=== PATIENT | female | born 1945 | race Caucasian/White ===

== ENCOUNTER 2020-10-15 10:27 | Outpatient (REF) | payer MEDICARE, MEDICAID, SELFPAY ==
[2020-10-15 11:30] LABS: MANUAL DIFF FLAG NO
[2020-10-15 11:47] LABS: Basophils Percent Auto 0.6 % (0-2); Eosinophils Absolute Auto 0.1 X10*3/uL (0.0-0.4); Eosinophils Percent Auto 2.2 % (0-4); Hematocrit 44.3 % (37-47); Hemoglobin 14.2 g/dl (12.0-16.0); Imm Gran Abs Auto 0.02 X10*3/uL (0.00-0.03); Imm Gran Pct Auto 0.4 % (0.0-0.4); Lymphocytes Absolute Auto 1.8 X10*3/uL (1.2-4.9); Lymphocytes Percent Auto 35.8 % (20-40); Mean Corpuscular HGB Conc 32.1 g/dl (31.0-35.0); Mean Corpuscular Hemoglobin 31.6 pg (27.0-33.0); Mean Corpuscular Volume 98.7 fL (80-98); Mean Platelet Volume 10.5 fL (9.4-12.3); Monocytes Absolute Auto 0.5 X10*3/uL (0.1-1.2); Neutrophils Absolute Auto 2.6 X10*3/uL (2.0-8.3); Platelet Count 192 X10*3/uL (160-400); Red Blood Count 4.49 X10*6/uL (4.20-5.50); Red Cell Distribution Width 12.9 % (11.0-16.0); White Blood Count 5.1 X10*3/uL (4.8-10.8)
[2020-10-15 11:54] LABS: Alanine Aminotransferase 12 U/L (0-31); Albumin Level 4.6 g/dL (3.5-5.0); Alkaline Phosphatase 100 U/L (39-117); Anion Gap 13 (12-20); Aspartate Amino Transferase 20 U/L (5-31); Bilirubin Total 0.7 mg/dL (0.0-1.0); Blood Urea Nitrogen 12 mg/dL (9-16); Calcium 9.9 mg/dL (8.4-10.2); Carbon Dioxide 28 mmol/L (22-29); Chloride 106 mmol/L (96-108); Estimated Glomerular Filt Rate > 60; Glucose Random 114 mg/dL (60-115); Potassium 4.5 mmol/L (3.3-5.1); Sodium 142 mmol/L (135-145)
== END 2020-10-15 10:28 | disposition home or self-care (01) ==
LOC: HO.LAB 10:27
PROVIDERS: PCP Family Medicine; Visit Provider Family Medicine
DX: R53.83 Other fatigue (principal)
CPT/HCPCS: 36415; 80053; 85025

== ENCOUNTER 2022-02-23 13:26 | Outpatient (REF) | payer MEDICARE, MEDICAID, SELFPAY ==
[2022-02-23 14:50] LABS: Appearance Urine Cloudy; Color Urine Yellow; Glucose Urine UA Negative (Negative); Leukocyte Esterase Urine Large (3+) (Negative); Nitrite Urine Negative (Negative); PH 5.5 (5.0-9.0); Specific Gravity - Urine <= 1.005 (1.005-1.025); UMIC TRIGGER UACC YES; Urine Blood Large (3+) (Negative); Urine Ketones Negative (Negative); Urine Protein 30 (1+) mg/dL (Neg-Trace)
[2022-02-23 14:55] LABS: Bacteria Urine None Seen (None Seen); Hyaline Casts Urine 0-2 /LPF (0-2); RBC Urine >20 /HPF (0-2); Squamous Epithelial Cell Urine 0-2 /HPF (0-2); UACC Culture Trigger YES; WBC Urine >50 /HPF (0-5)
== END 2022-02-23 13:27 | disposition home or self-care (01) ==
LOC: HO.LAB 13:26
PROVIDERS: PCP Family Medicine; Visit Provider Family Medicine
DX: R30.0 Dysuria (principal); F03.90 Unspecified dementia, unspecified severity, without behavioral disturbance, psychotic disturbance, mood disturbance, and anxiety
CPT/HCPCS: 81001; 87086; 87088; 87186

== ENCOUNTER 2023-06-02 10:13 | Outpatient (REF) | payer MEDICARE, MEDICAID, SELFPAY ==
[2023-06-02 11:27] LABS: Appearance Urine Clear; Color Urine Yellow; Glucose Urine UA Negative (Negative); Leukocyte Esterase Urine Large (3+) (Negative); Nitrite Urine Negative (Negative); PH 6.5 (5.0-9.0); Specific Gravity - Urine <= 1.005 (1.005-1.025); UMIC TRIGGER UACC YES; Urine Blood Moderate (2+) (Negative); Urine Ketones Negative (Negative); Urine Protein Negative (Neg-Trace)
[2023-06-02 11:51] LABS: Bacteria Urine None Seen (None Seen); Hyaline Casts Urine 0-2 /LPF (0-2); RBC Urine 0-2 /HPF (0-2); Squamous Epithelial Cell Urine 0-2 /HPF (0-2); UACC Culture Trigger YES; WBC Urine 21-50 /HPF (0-5)
== END 2023-06-02 10:14 | disposition home or self-care (01) ==
LOC: HO.LAB 10:13
PROVIDERS: PCP Family Medicine; Visit Provider Family Medicine
DX: Z13.89 Encounter for screening for other disorder (principal)
CPT/HCPCS: 81001; 87086

== ENCOUNTER 2023-06-05 06:06 | Inpatient (IN) | payer MEDICARE, MEDICAID, SELFPAY ==
--- NOTE | 2023-06-05 | ECG_ITS ---
Test Reason : FALL Blood Pressure : / mmHG Vent. Rate : 096 BPM Atrial Rate : 096 BPM P-R Int : 180 ms QRS Dur : 076 ms QT Int : 352 ms P-R-T Axes : 035 008 029 degrees QTc Int : 444 ms Normal sinus rhythm Inferior infarct , age undetermined Cannot rule out Anterior infarct , age undetermined Abnormal ECG No previous ECGs available Referred By: Generic ED Physician Electronically Signed By:NATALIA HARTMAN MD
--- NOTE | ~2023-06-05 | CT_ITS ---
EXAMINATION: CT HIP WITHOUT CONTRAST, LEFT CLINICAL INFORMATION: Left hip pain COMPARISON: None available. TECHNIQUE: Multidetector volumetric imaging was obtained through the left hip without contrast material. Multiplanar reformatted images were submitted in coronal and sagittal planes. This CT examination was performed using dose optimization techniques as appropriate, variously including the following: *Automated exposure control *Adjustment of mA and/or kV according to patient size (this includes techniques or standardized protocols for targeted exams where dose is matched to indication/reason for exam; i.e. extremities or head) *Use of iterative reconstruction technique DLP: 195 mGy-cm FINDINGS: Bones: CT scan confirm nondisplaced oblique fracture through the proximal diaphysis of the left femur which extends from the lesser trochanter into the lateral surface of the femoral diaphysis. No other fractures. Femoral head and neck are intact. Adjacent acetabulum, pubic rami, iliac bone and included sacrum are intact. Joints: Mild degenerative osteoarthritic changes of the left hip. Surrounding soft tissue: Included portion of the pelvis included part of the rectum bladder are normal. Subcutaneous fat and musculature are grossly unremarkable. No lymphadenopathy. CT/CT hip LT wo IV con IMPRESSION: * CT scan confirms nondisplaced oblique nondisplaced fracture through the proximal diaphysis of the left femur which extends from the lesser trochanter into the lateral surface of the femoral diaphysis. * No other fractures. * Mild degenerative osteoarthritic changes of the left hip.
--- NOTE | ~2023-06-05 | FL_ITS ---
EXAMINATION: XR FLUOROSCOPY WITH IMAGES CLINICAL INFORMATION: Left IM nailing. COMPARISON: June 05, 2023 TECHNIQUE: Fluoroscopy Supervised By: Dr. Roth. Fluoroscopy Time: 0.6 minutes. Cumulative Dose: 14.6 mGy. Images: 4. FINDINGS: Images demonstrate placement of compression screw with intramedullary candice transfixing a proximal left femoral fracture. FL/FL guidance in OR IMPRESSION: Intraoperative fluoroscopy for orthopedic procedure.
--- NOTE | ~2023-06-05 | XR_ITS ---
EXAMINATION: XR FEMUR, LEFT CLINICAL INFORMATION: Fall COMPARISON: None available. TECHNIQUE: AP and lateral views of the left femur were obtained. FINDINGS: There is an oblique radiolucent line through the proximal left femur diaphysis seen on one view only concerning for nondisplaced hairline fracture. Femoral head properly positioned. Femoral neck is intact. There are degenerative osteoarthritic changes of the knee. XR/XR femur LT 2V IMPRESSION: Suspicion for possible nondisplaced hairline fracture through the proximal left femur. Please correlate with area of tenderness, Padilla image. May consider correlation with follow-up cross-sectional imaging CT scan.
--- NOTE | ~2023-06-05 | CT_ITS ---
EXAMINATION: CT CERVICAL SPINE WITHOUT CONTRAST; UNENHANCED CT OF THE HEAD. CLINICAL INFORMATION: Fall. COMPARISON: None TECHNIQUE: Routine unenhanced CT of the head with multiple coronal and sagittal reformatted images; routine unenhanced CT of the cervical spine with multiple coronal and sagittal reformatted images. This CT examination was performed using dose optimization techniques as appropriate, variously including the following: *Automated exposure control *Adjustment of mA and/or kV according to patient size (this includes techniques or standardized protocols for targeted exams where dose is matched to indication/reason for exam; i.e. extremities or head) *Use of iterative reconstruction technique DLP: 213 mGy-cm FINDINGS: CT head: Moderate diffuse commensurate prominence of ventricles and sulci is noted. No intracranial hemorrhage, tumors or acute infarcts visualized. Mild segmental calcific atherosclerotic plaques are present in the cavernous portions of the internal carotid arteries. Bilateral senescent ocular calcifications are noted. Lobulated density is present in the left maxillary sinus and may represent mucosal retention cyst measuring approximately 2 cm in diameter. No mastoid or middle ear cavity effusions identified. Mild hyperostosis frontalis interna. CT cervical spine: Partial visualization is made of convex leftward curvature of the thoracic spine. No fractures or acute appearing subluxations of the cervical spine noted. Marked diffuse osteopenia. Moderate intervertebral disc space narrowing C4-C5, C5-C6 and C6-C7. 2 mm chronic appearing degenerative retrolisthesis C4-C5. No prevertebral fluid collections or soft tissue inflammatory changes. Mild bilateral carotid bulb calcific atherosclerosis. CT/CT cervical spine wo IV con IMPRESSION: CT HEAD: No acute intracranial abnormalities. CT CERVICAL SPINE: 1. No acute abnormalities. 2. Multilevel chronic spondylosis.
[2023-06-05 06:18] VITALS: BP 148/63; BP 164/72; PULSE 85; PULSE 87; RESP 16; O2SAT 96; O2SAT 99; BMI 27.3
--- NOTE | 2023-06-05 06:29 | ED_ITS ---
HPI - Fall General Chief Complaint: Fall Stated Complaint: Fall/Left leg and hip pain Time Seen by Provider: 06/05/23 06:29 Source: patient and RN notes reviewed Mode of arrival: ambulatory Limitations: no limitations History of Present Illness HPI Narrative: This is a 77-year-old female presenting to the emergency department for evaluation of left hip pain since 11:00PM last night. Patient states that while she was unplugging her [place] tree, she turned and believes her left foot got caught on the carpet and she fell, striking her left side and left hip. She states that she immediately had left-sided hip pain and left leg pain. She states that after the fall she was able to walk to her recliner however she has been unable to weight bear on her left leg since the fall. Denies hitting her head or loss of consciousness. She denies feeling dizzy, lightheaded, having any chest pain or shortness of breath prior to the fall. She denies any headaches, dizziness, chest pain, shortness breast, abdominal pain, nausea, vomiting or diarrhea. of note, patient reports that she wishes started on antibiotic to treat a urinary tract infection. She has not taken her dose today. No other complaints or concerns at this time. MD complaint: fall Onset (ago): hour(s) Fall from: standing Fall witnessed: no Place fall occurred: home Loss of consciousness: none Prolonged down time: minute(s) (5) Symptoms prior to fall: none Severity: moderate Quality: sharp and aching Associated symptoms (after fall): denies Related Data Allergies Allergy/AdvReac Type Severity Reaction Status Date / Time No Known Allergies Allergy Unverified 02/27/20 17:46 Review of Systems 2 Review of Systems: Yes all other systems are reviewed and are negative Constitutional: Constitutional: Reports as per [facility] [place] Social History Social History Unable to assess alcohol history related to: Unknown Smoked in Last 30 Days: No Use of substances other than those prescribed or required for medical reasons: No Advance Directives: No Advance Directives Information Provided: No Physical Exam 2 Vital Signs: Vital Signs: Last Vital Signs Pulse 85 06/05/23 06:18 Resp 16 06/05/23 06:18 BP 148/63 H 06/05/23 06:18 Pulse Ox 96 06/05/23 06:18 O2 Del Method Room Air 06/05/23 06:18 BMI result Body Mass Index 27.3 Const: General: cooperative, comfortable and no acute distress O rientation/consciousness: patient oriented x3 Limitations: no limitations HEENT: Head: Yes normal to inspection, Yes normocephalic and Yes atraumatic Ears: hearing grossly normal bilaterally General nose exam: Normal external nose present Face and sinus: Yes normal facial exam Mouth: Normal oral and palatal mucosa present, oropharynx normal and moist mucous membranes Throat: Yes posterior oropharynx normal Eyes: General: appearance normal, both eyes and all related structures E yelids: Yes eyelids normal Conjunctivae: conjunctivae normal Sclerae: s clerae normal Pupils: Equal, round and reactive pupils present EOM: EOMs intact bilaterally Neck: Neck: Yes normal visual inspection, Yes full ROM and Yes no lymphadenopathy Lymphatic: no lymphadenopathy noted Chest: Chest palpation & inspection: normal inspection of the chest Resp: Effort & Inspection: normal respiratory effort and able to speak in complete sentences Auscultation: clear to auscultation bilaterally, no crackles, no rales, no rhonchi and no wheezes Cardio: Rate: regular rate Rhythm: regular rhythm Heart sounds: S1 normal heart sound present and S2 normal heart sound present GI: Other: Abdomen is soft, nontender, nondistended. No active process seen. Inspection: Yes normal to inspection Skin: General skin exam: no rashes or lesions noted Trauma: no lacerations or abrasions Wounds: no wounds Neuro: General: patient oriented x3 and moves all extremities Cranial nerves: Yes Equal, round and reactive pupils present Extrem: Other: Tenderness to palpation along the anterior left femur with no ecchymosis or hematoma and posterior left hip. pain worsens with range of motion able to flex at the hip and left knee. Distal sensation circulation intact. No calf tenderness. No edema noted. DP pulse 2 + General: Yes normal to inspection Right upper extremity: normal to inspection Left upper extremity: normal to inspection Right lower extremity: normal to inspection Left lower extremity: normal to inspection Course Reevaluation(s) Reevaluation #1: CT cervical spine returns, no acute fracture seen. CT brain shows no acute intracranial process. Cervical collar removed. Reevaluation #2: Labs reviewed, no leukocytosis, stable H&H, electrolytes within normal limits, CPK mildly elevated at 185. Troponin 3.6, does not require repeat as patient has no chest pain and fall was mechanical. CT of the hip revealing a a nondisplaced oblique fracture through the proximal diaphysis of the left femur which extends to the lesser trochanter into the lateral surface of the femoral diaphysis. I spoke to Dr. Owens who recommends hospital admission and will perform surgery tomorrow. Time: 09:28 Reevaluation #3: Spoke to patient who is agreeable for Hospital admission and surgery. Spoke to hospitalist, transfer care initiated Time: 10:16 Medications Administered Discontinued Medications Generic Name Dose Route Start Last Admin Trade Name Marlene PRN Reason Stop Dose Admin Acetaminophen 650 mg 06/05/23 06:46 06/05/23 08:44 Acetaminophen 325 Mg Tablet PO 06/05/23 06:47 650 mg ONCE ONE Administration Medical Decision Making Medical Decision Making [facility] Narrative: This is a 77-year-old female, with no known past medical history, presenting to the emergency department complaints of left-sided hip and left leg pain status post mechanical fall which occurred last night at 11 p.m. she denies head strike or loss of consciousness. She was on the ground for approximately 5 minutes. She has been unable to bear weight on her left leg secondary to pain. On arrival, vital signs within normal limits. Patient has tenderness palpation along the left hip and left femur. Patient arrives in cervical collar. She is not complaining of any headaches or dizziness. She is not on anticoagulants. differential diagnoses include from oral fracture, hip fracture, dislocation. Plan: will obtain left hip CT, left femur x-ray, basic labs, EKG Differential Diagnosis Differential Diagnoses: The differential diagnosis associated with the presentation includes fracture, contusion, dislocation, ICH Admission/Observation Consideration of admission/observation: Escalation of care including admission/observation considered Patient requiring hospitalization as well as orthopedic surgical intervention. Consult Healthcare Provider Management of the patient was discussed with: Hospitalist and Energy Efficiency Specialist Dr. Owens, orthopedist Dr. Lennon, hospitalist Lab Data [facility] Lab Attestation statement: I reviewed the patient's lab results. no leukocytosis, electrolytes within normal limits. CPK 185, troponin 3.6. 06/05/23 06:56 06/05/23 06:56 Labs: Lab Results 06/05/23 Range/Units 06:56 WBC 9.2 (4.8-10.8) X10*3/uL RBC 4.15 L (4.20-5.50) X10*6/uL Hgb 13.1 (12.0-16.0) g/dl Hct 39.0 (37.0-47.0) % MCV 94.0 (80.0-98.0) fL MCH 31.6 (27.0-33.0) pg MCHC 33.6 (31.0-35.0) g/dl RDW 13.5 (11.0-16.0) % Plt Count 195 (160-400) X10*3/uL MPV 9.2 L (9.4-12.3) fL Immature Gran % (Auto) 0.4 (0.0-0.4) % Neut % (Auto) 78.9 H (45-73) % Lymph % (Auto) 9.9 L (20-40) % Wheeler % (Auto) 10.4 (2-11) % Eos % (Auto) 0.1 (0-4) % Baso % (Auto) 0.3 (0-2) % Lymph # (Auto) 0.9 L (1.2-4.9) X10*3/uL Wheeler # (Auto) 1.0 (0.1-1.2) X10*3/uL Eos # (Auto) 0.0 (0.0-0.4) X10*3/uL Baso # (Auto) 0.0 (0.0-0.2) X10*3/uL Abs Immat Gran (auto) 0.04 H (0.00-0.03) X10*3/uL Absolute Neuts (auto) 7.3 (2.0-8.3) x10*3/uL Absolute Nucleated RBC 0.000 (0.0-0.012) X10*3/uL Nucleated RBC % (auto) 0.0 (0.0-0.2) /100WBC Sodium 143 (135-145) mmol/L Potassium 4.2 (3.3-5.1) mmol/L Chloride 109 H (96-108) mmol/L Carbon Dioxide 22 (22-29) mmol/L Anion Gap 16 (12-20) BUN 15 (9-16) mg/dL Creatinine 0.83 (0.5-1.4) mg/dL Estim Creat Clear Calc 46.4 Estimated GFR > 60 Random Glucose 107 (60-115) mg/dL Calcium 9.7 (8.4-10.2) mg/dL Total Bilirubin 0.5 (0.0-1.0) mg/dL Direct Bilirubin 0.2 (0.0-0.5) mg/dL AST 28 (5-31) U/L ALT 15 (0-31) U/L Alkaline Phosphatase 87 (39-117) U/L Total Creatine Kinase 185 H (26-140) U/L Troponin I High Sens 3.6 (<3.5-17.0) ng/L Total Protein 7.1 (6.5-8.0) g/dL Albumin 4.3 (3.5-5.0) g/dL Independent Interpretation I performed an independent interpretation of an: EKG Interpretation: EKG normal sinus rhythm at a ventricular rate of 96 beats per minute, NE interval 180, no ST elevation or depression. Radiology Impression Discussion of test interpretation with radiology: I have reviewed the radiologist's reading. Radiologist Impression: EXAMINATION: CT HIP WITHOUT CONTRAST, LEFT CLINICAL INFORMATION: Left hip pain COMPARISON: None available. TECHNIQUE: Multidetector volumetric imaging was obtained through the left hip without contrast material. Multiplanar reformatted images were submitted in coronal and sagittal planes. This CT examination was performed using dose optimization techniques as appropriate, variously including the following: *Automated exposure control *Adjustment of mA and/or kV according to patient size (this includes techniques or standardized protocols for targeted exams where dose is matched to indication/reason for exam; i.e. extremities or head) *Use of iterative reconstruction technique DLP: 195 mGy-cm FINDINGS: Bones: CT scan confirm nondisplaced oblique fracture through the proximal diaphysis of the left femur which extends from the lesser trochanter into the lateral surface of the femoral diaphysis. No other fractures. Femoral head and neck are intact. Adjacent acetabulum, pubic rami, iliac bone and included sacrum are intact. Joints: Mild degenerative osteoarthritic changes of the left hip. Surrounding soft tissue: Included portion of the pelvis included part of the rectum bladder are normal. Subcutaneous fat and musculature are grossly unremarkable. No lymphadenopathy. CT/CT hip LT wo IV con IMPRESSION: * CT scan confirms nondisplaced oblique nondisplaced fracture through the proximal diaphysis of the left femur which extends from the lesser trochanter into the lateral surface of the femoral diaphysis. * No other fractures. * Mild degenerative osteoarthritic changes of the left hip. Dictated By: Antionette Jarrett MD EXAMINATION: CT CERVICAL SPINE WITHOUT CONTRAST; UNENHANCED CT OF THE HEAD. CLINICAL INFORMATION: Fall. COMPARISON: None TECHNIQUE: Routine unenhanced CT of the head with multiple coronal and sagittal reformatted images; routine unenhanced CT of the cervical spine with multiple coronal and sagittal reformatted images. This CT examination was performed using dose optimization techniques as appropriate, variously including the following: *Automated exposure control *Adjustment of mA and/or kV according to patient size (this includes techniques or standardized protocols for targeted exams where dose is matched to indication/reason for exam; i.e. extremities or head) *Use of iterative reconstruction technique DLP: 213 mGy-cm FINDINGS: CT head: Moderate diffuse commensurate prominence of ventricles and sulci is noted. No intracranial hemorrhage, tumors or acute infarcts visualized. Mild segmental calcific atherosclerotic plaques are present in the cavernous portions of the internal carotid arteries. Bilateral senescent ocular calcifications are noted. Lobulated density is present in the left maxillary sinus and may represent mucosal retention cyst measuring approximately 2 cm in diameter. No mastoid or middle ear cavity effusions identified. Mild hyperostosis frontalis interna. CT cervical spine: Partial visualization is made of convex leftward curvature of the thoracic spine. No fractures or acute appearing subluxations of the cervical spine noted. Marked diffuse osteopenia. Moderate intervertebral disc space narrowing C4-C5, C5-C6 and C6-C7. 2 mm chronic appearing degenerative retrolisthesis C4-C5. No prevertebral fluid collections or soft tissue inflammatory changes. Mild bilateral carotid bulb calcific atherosclerosis. CT/CT head/brain wo IV con IMPRESSION: CT HEAD: No acute intracranial abnormalities. CT CERVICAL SPINE: 1. No acute abnormalities. 2. Multilevel chronic spondylosis. Dictated By: Chriss Kumar MD Signed By: <Electronically signed by Chriss Kumar MD in OV> EXAMINATION: XR FEMUR, LEFT CLINICAL INFORMATION: Fall COMPARISON: None available. TECHNIQUE: AP and lateral views of the left femur were obtained. FINDINGS: There is an oblique radiolucent line through the proximal left femur diaphysis seen on one view only concerning for nondisplaced hairline fracture. Femoral head properly positioned. Femoral neck is intact. There are degenerative osteoarthritic changes of the knee. XR/XR femur LT 2V IMPRESSION: Suspicion for possible nondisplaced hairline fracture through the proximal left femur. Please correlate with area of tenderness, Padilla image. May consider correlation with follow-up cross-sectional imaging CT scan. Dictated By: Antionette Jarrett MD Independent Historian Clinical information obtained from an independent historian. History obtained from or confirmed by: Friend FriendAnnabel at bedside Prescription Management I considered prescription management with: Pain Medication Critical Care Time Critical Care Time Critical Care Time: Yes Total Critical Care Time: 35 Attestation: I have personally provided critical care time exclusive of time spent on separately billable procedures. Time includes review of lab data, radiology results, discussion with consultants, and monitoring for potential decompensation. Intervention performed as documented. Discharge Plan Discharge Clinical Impression: Femur fracture, left Patient Disposition: Admitted As Inpatient
[2023-06-05 07:09] LABS: Basophils Percent Auto 0.3 % (0-2); Eosinophils Percent Auto 0.1 % (0-4); Hemoglobin 13.1 g/dl (12.0-16.0); Imm Gran Abs Auto 0.04 X10*3/uL (0.00-0.03); Imm Gran Pct Auto 0.4 % (0.0-0.4); Lymphocytes Absolute Auto 0.9 X10*3/uL (1.2-4.9); Lymphocytes Percent Auto 9.9 % (20-40); MANUAL DIFF FLAG NO; Mean Corpuscular HGB Conc 33.6 g/dl (31.0-35.0); Mean Corpuscular Hemoglobin 31.6 pg (27.0-33.0); Mean Platelet Volume 9.2 fL (9.4-12.3); Monocytes Percent Auto 10.4 % (2-11); Neutrophils Absolute Auto 7.3 x10*3/uL (2.0-8.3); Neutrophils Percent Auto 78.9 % (45-73); Platelet Count 195 X10*3/uL (160-400); Red Blood Count 4.15 X10*6/uL (4.20-5.50); Red Cell Distribution Width 13.5 % (11.0-16.0); White Blood Count 9.2 X10*3/uL (4.8-10.8)
--- NOTE | 2023-06-05 07:11 | PC.NURSE ---
resumed care of patient, labs being drawn, awaiting CT at this time, C-collar in place. All safety measures in place at this time.
[2023-06-05 07:43] LABS: Alanine Aminotransferase 15 U/L (0-31); Albumin Level 4.3 g/dL (3.5-5.0); Alkaline Phosphatase 87 U/L (39-117); Anion Gap 16 (12-20); Aspartate Amino Transferase 28 U/L (5-31); Bilirubin Direct 0.2 mg/dL (0.0-0.5); Bilirubin Total 0.5 mg/dL (0.0-1.0); Blood Urea Nitrogen 15 mg/dL (9-16); Calcium 9.7 mg/dL (8.4-10.2); Carbon Dioxide 22 mmol/L (22-29); Chloride 109 mmol/L (96-108); Creatinine Clr Calc Pharmacy 46.4; Estimated Glomerular Filt Rate > 60; Glucose Random 107 mg/dL (60-115); Potassium 4.2 mmol/L (3.3-5.1); Sodium 143 mmol/L (135-145); Total Protein 7.1 g/dL (6.5-8.0)
[2023-06-05 07:50] LABS: Troponin-I High Sensitivity 3.6 ng/L (<3.5-17.0)
[2023-06-05] MEDS: Acetaminophen 325 MG TABLET 650 MG PO ×2 (08:44→15:06)
--- NOTE | 2023-06-05 11:44 | P.HPHOSP_ITS ---
History of Present Illness Date of Service: 06/05/23 Chief Complaint: fall/left hip pain 77-year-old female diagnosed to have COVID 2 weeks ago, and 3 days ago diagnosed to have urinary tract infection on Bactrim day 3, otherwise she denies any significant past medical history of diabetes, no hypertension, no coronary artery disease, presenting to the emergency department for evaluation of left hip pain since 11:00PM last night. Patient states that while she was unplugging her [place] tree, she turned and believes her left foot got caught on the carpet and she fell, striking her left side and left hip. She states that she immediately had left-sided hip pain with radiation to left leg, after the fall she was able to walk to her recliner but was unable to weightbear on left leg, therefore came to emergency room, she denies head injury, no loss of consciousness no symptoms of lightheadedness dizziness, chest pain or shortness of breath prior to fall , she denies symptoms of nausea, vomiting or diarrhea, her urinary symptoms of frequency and dysuria have resolved. Review of Systems 2 Review of Systems: General no headache, no dizziness ,no fever chills. CVS no chest pain, no palpitation. Respiratory no cough, no sob. Gastrointestinal no nausea, no vomiting, no abdominal pain no urinary urgency, no frequency Musculoskeletal left hip pain with movement PMFSH Pertinent family history: Mother diseased diet few to old age, father at age 72 due to [place], denies family history of diabetes, cancer Social History Unable to assess alcohol history related to: Unknown Smoked in Last 30 Days: No Use of substances other than those prescribed or required for medical reasons: No Advance Directives: No Advance Directives Information Provided: No Meds Allergies Allergy/AdvReac Type Severity Reaction Status Date / Time No Known Allergies Allergy Unverified 02/27/20 17:46 Active Medications: Current Medications Acetaminophen (Acetaminophen 325 Mg Tablet) 650 mg PO Q6H PRN PRN Reason: Pain, Mild (Pain Scale 1-3) Al Hydroxide/Mg Hydroxide (Magnesium Hydrox/Alum Hydrox 30 Ml Oral.Susp) 30 ml PO Q4H PRN PRN Reason: Heartburn/Nausea Benzonatate (Benzonatate 100 Mg Capsule) 100 mg PO TID PRN PRN Reason: Cough Enoxaparin Sodium (Enoxaparin Sodium 40 Mg/0.4 Ml Syringe) 40 mg SUBCUT Q24H [facility] Ceftriaxone Sodium 1 gm/ (Sodium Chloride) 50 mls @ 100 mls/hr IV Q24H [facility] Melatonin (Melatonin 3 Mg Tablet) 3 mg PO BEDTIME PRN PRN Reason: Insomnia Morphine Sulfate (Morphine Sulfate 4 Mg/Ml Cartridge) 3 mg IVPUSH Q4H PRN; Protocol PRN Reason: Pain, Severe (Pain Scale 7-10) Ondansetron HCl (Ondansetron Hcl 4 Mg/2 Ml Vial) 4 mg IVPUSH Q8H PRN PRN Reason: Nausea and Vomiting Sodium Chloride (0.9 % Sodium Chloride Flush 3 Ml Syringe) 3 ml IVFLUSH QSHIFT [facility] Home Medications Medication Instructions Recorded Confirmed Last Taken Type ZICAM 1 tab PO Q4H 06/05/23 06/05/23 Unknown History acetaminophen 325 mg tablet 650 mg PO Q6H PRN Pain 06/05/23 06/05/23 Unknown History ascorbic acid (vitamin C) 1,000 mg 1 g PO TID 06/05/23 06/05/23 Unknown History tablet (Vitamin C) lactobacillus combination no.4 3 3,000 mmu cells PO DAILY 06/05/23 06/05/23 Unknown History billion cell capsule (Probiotic) sulfamethoxazole 800 1 tab PO BID 06/05/23 06/05/23 Unknown History mg-trimethoprim 160 mg tablet Physical Exam 2 Vital Signs and Narrative: Vital Signs: Last Vital Signs Pulse 85 06/05/23 06:18 Resp 16 06/05/23 06:18 BP 148/63 H 06/05/23 06:18 Pulse Ox 96 06/05/23 06:18 O2 Del Method Room Air 06/05/23 06:18 BMI result Body Mass Index 27.3 Const: Other: General awake alert x3, resting comfortably in no acute distress. Neck supple no JVD. CVS regular rate rhythm, Respiratory lungs clear to auscultation, no respiratory distress, no wheeze, no rhonchi. Gastrointestinal abdomen soft, nontender, bowel sounds audible, no guarding , no rigidity. Extremities no edema. Left hip no hematoma, no bruise, pain with left hip movement, good peripheral pulses Neuro nonfocal Skin no rash Psych appropriate affect Results Labs 06/05/23 06:56 06/05/23 06:56 Labs: Laboratory Results - last 24 hr 06/05/23 06:56 MCV 94.0 MCH 31.6 MCHC 33.6 RDW 13.5 Plt Count 195 MPV 9.2 L Immature Gran % (Auto) 0.4 Neut % (Auto) 78.9 H Lymph % (Auto) 9.9 L Wilson % (Auto) 10.4 Eos % (Auto) 0.1 Baso % (Auto) 0.3 Lymph # (Auto) 0.9 L Wilson # (Auto) 1.0 Eos # (Auto) 0.0 Baso # (Auto) 0.0 Abs Immat Gran (auto) 0.04 H Absolute Neuts (auto) 7.3 Absolute Nucleated RBC 0.000 Nucleated RBC % (auto) 0.0 Anion Gap 16 Estim Creat Clear Calc 46.4 Estimated GFR > 60 Random Glucose 107 Calcium 9.7 Total Bilirubin 0.5 Direct Bilirubin 0.2 AST 28 ALT 15 Alkaline Phosphatase 87 Total Creatine Kinase 185 H Total Protein 7.1 Albumin 4.3 Imaging Radiologist's Impressions: Impressions Femur X-Ray 06/05/23 07:49 IMPRESSION: Suspicion for possible nondisplaced hairline fracture through the proximal left femur. Please correlate with area of tenderness, Padilla image. May consider correlation with follow-up cross-sectional imaging CT scan. Cervical Spine CT 06/05/23 08:12 IMPRESSION: CT HEAD: No acute intracranial abnormalities. CT CERVICAL SPINE: 1. No acute abnormalities. 2. Multilevel chronic spondylosis. Head CT 06/05/23 08:12 IMPRESSION: CT HEAD: No acute intracranial abnormalities. CT CERVICAL SPINE: 1. No acute abnormalities. 2. Multilevel chronic spondylosis. Hip CT 06/05/23 08:12 IMPRESSION: * CT scan confirms nondisplaced oblique nondisplaced fracture through the proximal diaphysis of the left femur which extends from the lesser trochanter into the lateral surface of the femoral diaphysis. * No other fractures. * Mild degenerative osteoarthritic changes of the left hip. Assessment and Plan (1) Femur fracture, left: Status: Acute Plan 77-year-old female with no significant past medical history recently diagnosed to have COVID infection 2 weeks ago was recuperating at home taking high-dose vitamin-C and zinc, 3 days ago diagnosed to have UTI and was started on Bactrim, patient fell last night with left hip pain therefore came to ED ct left hip showed nondisplaced oblique fracture through the proximal diaphysis of the left femur which extends from the lesser trochanter into the lateral surface of the femoral diaphysis. Mechanical fall with left femur fracture Admit to med surg Normal head CT and cervical spine CT. IV morphine and oxycodone 5 mg as needed,IS, stool softeners Orthopedic consultation/NPO after midnight. PT consultation. UTI Recently diagnosed to have urine infection on Bactrim D3, urine culture however showed no growth. Recent COVID infection diagnosed 2 weeks ago, no hypoxia, continue supportive care. DVT prophylaxis subQ Lovenox/compression boots. Code status DNR DNI. In my clinical judgment patient need to night inpatient stay for orthopedic consultation for left femur surgery. Quality Stroke Does the patient have a stroke diagnosis?: No VTE Prior VTE?: No VTE Risk Level:: Medical - moderate - high VTE Device Contraindication: Treatment Not Indicated VTE Drug Contraindication: N/A - Med Ordered
[2023-06-05] MEDS: cefTRIAXone sodium 1 GM in 0.9 % Sodium Chloride 50 ML IV (12:22)
[2023-06-05] MEDS: Enoxaparin Sodium 40 MG/0.4 ML SYRINGE SUBCUT (12:23)
--- NOTE | 2023-06-05 12:26 | PC.NURSE ---
pt medicated per MAR- 20G IV placed in left wrist 1gm ceftiaxone infused, lovenox given in left upper arm
[2023-06-05 12:56] VITALS: BP 152/78; PULSE 89; RESP 18; TEMP 36.4; O2SAT 98
--- NOTE | 2023-06-05 13:13 | P.HPOP_ITS ---
History of Present Illness History of Present Illness Date of Service: 06/05/23 Chief complaint: Left femur fracture Narrative: Ronna Jones is a 77 year old female who fell at while unplugging [email or web address]. She presented with left hip pain and was unable to ambulate. She denies other injury. She describes walking without an assistive device at baseline. Review of Systems 2 Review of Systems: left hip pain Yes all other systems are reviewed and are negative PMFSH Social History Social History Household Members: Other Housing: Assisted Living Facility Housing Other:: [facility] Unable to assess alcohol history related to: Unknown Patient Tobacco Use Status: Never used Tobacco Meds Allergies Allergy/AdvReac Type Severity Reaction Status Date / Time No Known Allergies Allergy Unverified 02/27/20 17:46 Active Medications: Current Medications Acetaminophen (Acetaminophen 325 Mg Tablet) 650 mg PO Q6H PRN PRN Reason: Pain, Mild (Pain Scale 1-3) Al Hydroxide/Mg Hydroxide (Magnesium Hydrox/Alum Hydrox 30 Ml Oral.Susp) 30 ml PO Q4H PRN PRN Reason: Heartburn/Nausea Ascorbic Acid (Ascorbic Acid 500 Mg Tablet) 500 mg PO DAILY LEE ANN Benzonatate (Benzonatate 100 Mg Capsule) 100 mg PO TID PRN PRN Reason: Cough Enoxaparin Sodium (Enoxaparin Sodium 40 Mg/0.4 Ml Syringe) 40 mg SUBCUT Q24H [facility] Last Admin: 06/05/23 12:23 Dose: 40 mg Ceftriaxone Sodium 1 gm/ (Sodium Chloride) 50 mls @ 100 mls/hr IV Q24H [facility] Last Infusion: 06/05/23 13:04 Dose: Infused Melatonin (Melatonin 3 Mg Tablet) 3 mg PO BEDTIME PRN PRN Reason: Insomnia Morphine Sulfate (Morphine Sulfate 4 Mg/Ml Cartridge) 3 mg IVPUSH Q4H PRN; Protocol PRN Reason: Pain, Severe (Pain Scale 7-10) Ondansetron HCl (Ondansetron Hcl 4 Mg/2 Ml Vial) 4 mg IVPUSH Q8H PRN PRN Reason: Nausea and Vomiting Oxycodone HCl (Oxycodone Hcl Immed Release 5 Mg Tablet) 5 mg PO Q6H PRN PRN Reason: Pain, Moderate(Pain Scale 4-6) Sodium Chloride (0.9 % Sodium Chloride Flush 3 Ml Syringe) 3 ml IVFLUSH QSHIFT [facility] Home Medications Medication Instructions Recorded Confirmed Last Taken Type ZICAM 1 tab PO Q4H 06/05/23 06/05/23 Unknown History acetaminophen 325 mg tablet 650 mg PO Q6H PRN Pain 06/05/23 06/05/23 Unknown History ascorbic acid (vitamin C) 1,000 mg 1 g PO TID 06/05/23 06/05/23 Unknown History tablet (Vitamin C) lactobacillus combination no.4 3 3,000 mmu cells PO DAILY 06/05/23 06/05/23 Unknown History billion cell capsule (Probiotic) sulfamethoxazole 800 1 tab PO BID 06/05/23 06/05/23 Unknown History mg-trimethoprim 160 mg tablet Physical Exam 2 Vital Signs: Vital Signs: Last Vital Signs Temp 97.6 F 06/05/23 12:56 Pulse 89 06/05/23 12:56 Resp 18 06/05/23 12:56 BP 152/78 H 06/05/23 12:56 Pulse Ox 98 06/05/23 12:56 O2 Del Method Room Air 06/05/23 12:56 BMI result Body Mass Index 27.3 Const: General: cooperative, healthy appearing, no acute distress, well developed and alert HEENT: Head: Yes normal to inspection, Yes normocephalic and Yes atraumatic Mouth: moist mucous membranes Eyes: General: appearance normal, both eyes and all related structures EOM: EOMs intact bilaterally Chest: Other: no audible wheezing. Resp: Other: No audible wheezing Effort & Inspection: normal respiratory effort Cardio: Other: Radial pulse palpable with no rythmic abnormalities Back/Spine/Pelvis: Cervical Spine: normal cervical lordosis Skin: General skin exam: no rashes or lesions noted Neuro: General: no focal motor deficits Extrem: Other: Cannot SLR Pain with log roll sking intact over lateral left hip Firing EHL/TA/GC DP+2 SILT Psych: Appearance: grossly normal and well kempt Mental Status: mental status grossly normal Speech and movement: Normal speech and movement present Affect: normal affect Attitude: cooperative Results Labs 06/05/23 06:56 06/05/23 06:56 Labs: Abnormal lab results 06/05/23 Range/Units 06:56 RBC 4.15 L (4.20-5.50) X10*6/uL MPV 9.2 L (9.4-12.3) fL Neut % (Auto) 78.9 H (45-73) % Lymph % (Auto) 9.9 L (20-40) % Lymph # (Auto) 0.9 L (1.2-4.9) X10*3/uL Abs Immat Gran (auto) 0.04 H (0.00-0.03) X10*3/uL Chloride 109 H (96-108) mmol/L Total Creatine Kinase 185 H (26-140) U/L H & H 06/05/23 Range/Units 06:56 Hgb 13.1 (12.0-16.0) g/dl Hct 39.0 (37.0-47.0) % All other labs normal. Diagnostic results Hip CT: image reviewed (Non displaced fracture proximal femur/ IT region. Extends through medial and lateral cortex.) Assessment and Plan (1) Femur fracture, left: Status: Acute Plan This is a 77 yo F with a non displaced left intertrochanteric femur fracture. . I reviewed the CT closely and this extends through both cortices and non operative treatment carries a risk of fracture displacement and I believe it would slow her recovery. She cannot walk and I recommend surgical fixation. We discussed the risks benefits and alternatives. I explained the procedure to her and reviewed the risks including but not limited to the risk of pain, infection, stiffness, need for further surgery as well as potential medical complications such as blood clots, pulmonary embolism and cardiac complications. She will be NPO after midnight and will proceed forward pending medical clearance. Quality Stroke Does the patient have a stroke diagnosis?: No VTE Prior VTE?: No VTE Risk Level:: Medical - moderate - high VTE Device Contraindication: Treatment Not Indicated VTE Drug Contraindication: N/A - Med Ordered Procedures Date of Service Date of Service: 06/05/23
[2023-06-05] MEDS: 0.9 % Sodium Chloride Flush 3 ML SYRINGE IVFLUSH ×2 (15:03→22:52)
[2023-06-05 15:11] VITALS: BP 136/60; PULSE 80; RESP 16; TEMP 36.6; O2SAT 99
[2023-06-05 15:24] VITALS: BP 119/58; PULSE 82; RESP 16; TEMP 36.2; O2SAT 97
[2023-06-05 19:36] VITALS: BP 141/65; PULSE 89; RESP 16; TEMP 37.3; O2SAT 96
[2023-06-05] MEDS: Morphine Sulfate 4 MG/ML CARTRIDGE 3 MG IVPUSH (20:45)
[2023-06-06] VITALS (12 sets, daily range): BP systolic 122–155; BP diastolic 59–78; PULSE 70–95; RESP 12–20; TEMP 35.9–36.9; O2SAT 92–97; BMI 27.3
[2023-06-06] MEDS: Morphine Sulfate 4 MG/ML CARTRIDGE 3 MG IVPUSH (04:11)
[2023-06-06] MEDS: Ascorbic Acid 500 MG TABLET PO (09:03)
[2023-06-06] MEDS: oxyCODONE HCl Immed Release 5 MG TABLET PO ×2 (11:02→19:22)
--- NOTE | 2023-06-06 11:41 | P.PNIM_ITS ---
Subjective Subjective Date of Service: 06/06/23 Interval History: Sitting comfortably on bed, offers no acute complaints of pain, is NPO and scheduled for left hip surgery this afternoon, no acute events overnight denies shortness of breath, no chest pain, no palpitations, no lightheadedness or dizziness, no urinary symptoms. Review of Systems All other system reviewed and negative. Physical Exam 2 Vital Signs: Vital Signs: Last Vital Signs Temp 96.7 F L 06/06/23 04:00 Pulse 74 06/06/23 07:34 Resp 12 06/06/23 07:34 BP 130/60 06/06/23 07:34 Pulse Ox 94 06/06/23 07:34 O2 Del Method Room Air 06/06/23 07:34 BMI result Body Mass Index 27.3 Const: Other: General awake alert x3, resting comfortably in no acute distress. Neck supple no JVD. CVS regular rate rhythm, Respiratory lungs clear to auscultation, no respiratory distress, no wheeze, no rhonchi. Gastrointestinal abdomen soft, non tender, bowel sounds audible, no guarding , no rigidity. Extremities no edema. Left hip no hematoma, no bruise, pain with left hip movement, good peripheral pulses Neuro non focal Skin no rash Psych appropriate affect Objective Data Active Medications Acetaminophen (Acetaminophen 325 Mg Tablet) 650 mg PO Q6H PRN PRN Reason: Pain, Mild (Pain Scale 1-3) Last Admin: 06/05/23 15:06 Dose: 650 mg Documented By: SALU Al Hydroxide/Mg Hydroxide (Magnesium Hydrox/Alum Hydrox 30 Ml Oral.Susp) 30 ml PO Q4H PRN PRN Reason: Heartburn/Nausea Ascorbic Acid (Ascorbic Acid 500 Mg Tablet) 500 mg PO DAILY ON LICENSE OF [facility] Last Admin: 06/06/23 09:03 Dose: 500 mg Documented By: THERESA Benzonatate (Benzonatate 100 Mg Capsule) 100 mg PO TID PRN PRN Reason: Cough Cefazolin Sodium/Dextrose (Ancef) 2 gm in 50 mls @ 100 mls/hr IV PREOP ONE Stop: 06/06/23 12:29 Melatonin (Melatonin 3 Mg Tablet) 3 mg PO BEDTIME PRN PRN Reason: Insomnia Morphine Sulfate (Morphine Sulfate 4 Mg/Ml Cartridge) 3 mg IVPUSH Q4H PRN; Protocol PRN Reason: Pain, Severe (Pain Scale 7-10) Last Admin: 06/06/23 04:11 Dose: 3 mg Documented By: MANUEL Ondansetron HCl (Ondansetron Hcl 4 Mg/2 Ml Vial) 4 mg IVPUSH Q8H PRN PRN Reason: Nausea and Vomiting Oxycodone HCl (Oxycodone Hcl Immed Release 5 Mg Tablet) 5 mg PO Q6H PRN PRN Reason: Pain, Moderate(Pain Scale 4-6) Last Admin: 06/06/23 11:02 Dose: 5 mg Documented By: TABITHA Sodium Chloride (0.9 % Sodium Chloride Flush 3 Ml Syringe) [facility] Last Admin: 06/06/23 09:00 Dose: Not Given Documented By: THERESA Non-Admin Reason: Previously Administered Labs 06/05/23 06:56 06/05/23 06:56 Labs: Laboratory Results - last 24 hr 06/05/23 15:38 Blood Type A Positive Antibody Screen NEGATIVE Assessment and Plan (1) Femur fracture, left: Status: Acute Plan 77-year-old female with no significant past medical history recently diagnosed to have COVID infection 2 weeks ago was recuperating at home taking high-dose vitamin-C and zinc, 3 days ago diagnosed to have UTI and was started on Bactrim, patient fell last night with left hip pain therefore came to ED ct left hip showed nondisplaced oblique fracture through the proximal diaphysis of the left femur which extends from the lesser trochanter into the lateral surface of the femoral diaphysis. Mechanical fall with left femur fracture Good pain control Normal head CT and cervical spine CT. Continue IV morphine and oxycodone 5 mg as needed,IS, stool softeners scheduled for left hip surgery this afternoon UTI Recently diagnosed to have urine infection on Bactrim D3, urine culture showed no growth, will DC antibiotics. Recent COVID infection diagnosed 2 weeks ago, no hypoxia, continue supportive care. DVT prophylaxis compression boots. DVT prophylaxis post surgery as per orthopedic surgeon. Code status DNR DNI. In my clinical judgment patient continued inpatient stay for left femur surgery and safe disposition. Quality Stroke Does the patient have a stroke diagnosis?: No VTE Prior VTE?: No VTE Risk Level:: Medical - moderate - high VTE Device Contraindication: Treatment Not Indicated VTE Drug Contraindication: N/A - Med Ordered
[2023-06-06] MEDS: Lactated Ringers 1,000 ML 80 ML IVCONT (12:20)
--- NOTE | 2023-06-06 12:45 | HO.ANESPROP2 ---
[facility] Active Problems Active Problems: All Active Problems (Updated 06/05/23 @ 10:10 by EBEN Moura) Femur fracture, left (Acute) Past Medical History Patient : No Family History Family history of problems with anesthesia: No Surgical History History of Problems with Anesthesia: No Social History Social History Household Members: Other Housing: Assisted Living Facility Housing Other:: [facility] Unable to assess alcohol history related to: Unknown Patient Tobacco Use Status: Never used Tobacco Meds Allergies Allergy/AdvReac Type Severity Reaction Status Date / Time No Known Allergies Allergy Verified 06/06/23 12:22 Active Medications: Current Medications Acetaminophen (Acetaminophen 325 Mg Tablet) 650 mg PO Q6H PRN PRN Reason: Pain, Mild (Pain Scale 1-3) Last Admin: 06/05/23 15:06 Dose: 650 mg Al Hydroxide/Mg Hydroxide (Magnesium Hydrox/Alum Hydrox 30 Ml Oral.Susp) 30 ml PO Q4H PRN PRN Reason: Heartburn/Nausea Ascorbic Acid (Ascorbic Acid 500 Mg Tablet) 500 mg PO DAILY [facility]CLUDES [facility] Last Admin: 06/06/23 09:03 Dose: 500 mg Benzonatate (Benzonatate 100 Mg Capsule) 100 mg PO TID PRN PRN Reason: Cough Fentanyl (Fentanyl Citrate/Pf 100 Mcg/2 Ml Vial) 25 mcg IVPUSH Q5M PRN; Protocol PRN Reason: Pain, Moderate(Pain Scale 4-6) Lactated Ringer's (Lr) 1,000 mls @ 80 mls/hr IVCONT .[id number] COUNT INCLUDES THE [facility] Last Admin: 06/06/23 12:20 Dose: 80 mls/hr Melatonin (Melatonin 3 Mg Tablet) 3 mg PO BEDTIME PRN PRN Reason: Insomnia Morphine Sulfate (Morphine Sulfate 4 Mg/Ml Cartridge) 3 mg IVPUSH Q4H PRN; Protocol PRN Reason: Pain, Severe (Pain Scale 7-10) Last Admin: 06/06/23 04:11 Dose: 3 mg Ondansetron HCl (Ondansetron Hcl 4 Mg/2 Ml Vial) 4 mg IVPUSH Q8H PRN PRN Reason: Nausea and Vomiting Ondansetron HCl (Ondansetron Hcl 4 Mg/2 Ml Vial) 4 mg IVPUSH ONCE PRN PRN Reason: Nausea and Vomiting Oxycodone HCl (Oxycodone Hcl Immed Release 5 Mg Tablet) 5 mg PO Q6H PRN PRN Reason: Pain, Moderate(Pain Scale 4-6) Last Admin: 06/06/23 11:02 Dose: 5 mg Sodium Chloride (0.9 % Sodium Chloride Flush 3 Ml Syringe) 3 ml IVFLUSH QSHIFT LEE ANN Last Admin: 06/06/23 09:00 Dose: Not Given Home Medications Medication Instructions Recorded Confirmed Last Taken Type ZICAM 1 tab PO Q4H 06/05/23 06/05/23 Unknown History acetaminophen 325 mg tablet 650 mg PO Q6H PRN Pain 06/05/23 06/05/23 Unknown History ascorbic acid (vitamin C) 1,000 mg 1 g PO TID 06/05/23 06/05/23 Unknown History tablet (Vitamin C) lactobacillus combination no.4 3 3,000 mmu cells PO DAILY 06/05/23 06/05/23 Unknown History billion cell capsule (Probiotic) sulfamethoxazole 800 1 tab PO BID 06/05/23 06/05/23 Unknown History mg-trimethoprim 160 mg tablet Exam Height,Weight and Vital Signs: Height 5 ft Weight 63.4 kg Last Vital Signs Temp 97.5 F 06/06/23 12:20 Pulse 82 06/06/23 12:20 Resp 16 06/06/23 12:20 BP 154/69 H 06/06/23 12:20 Pulse Ox 97 06/06/23 12:20 O2 Del Method Room Air 06/06/23 12:20 Pertinent Lab Results Pertinent Lab Results: Laboratory Tests 06/05/23 06/05/23 06:56 15:38 WBC 9.2 RBC 4.15 L Hgb 13.1 Hct 39.0 MCV 94.0 MCH 31.6 MCHC 33.6 RDW 13.5 Plt Count 195 MPV 9.2 L Immature Gran % (Auto) 0.4 Neut % (Auto) 78.9 H Lymph % (Auto) 9.9 L Thayer % (Auto) 10.4 Eos % (Auto) 0.1 Baso % (Auto) 0.3 Lymph # (Auto) 0.9 L Thayer # (Auto) 1.0 Eos # (Auto) 0.0 Baso # (Auto) 0.0 Abs Immat Gran (auto) 0.04 H Absolute Neuts (auto) 7.3 Absolute Nucleated RBC 0.000 Nucleated RBC % (auto) 0.0 Sodium 143 Potassium 4.2 Chloride 109 H Carbon Dioxide 22 Anion Gap 16 BUN 15 Creatinine 0.83 Estim Creat Clear Calc 46.4 Estimated GFR > 60 Random Glucose 107 Calcium 9.7 Total Bilirubin 0.5 Direct Bilirubin 0.2 AST 28 ALT 15 Alkaline Phosphatase 87 Total Creatine Kinase 185 H Troponin I High Sens 3.6 Total Protein 7.1 Albumin 4.3 Blood Type A Positive Antibody Screen NEGATIVE Airway Mallampati Class: II TM Dist: >3cm Neck ROM: Full Heart: rrr Lungs: clear Assessment and Plan Final Anesthetic Review Family History of Problems with Anesthesia: No History of Problems with Anesthesia: No NPO: Yes ASA Class: II Final Preanesthetic Review: No Changes in Pt Med Stat, Meds/Allgs Chart Reviewed, Consent Obtained/Reviewed and Anes Risks/Benef Reviewed Patient Risk: Intermediate Procedure Risk: Intermediate Anesthetic Plan Anesthetic Plan: GA Disposition: Standard PACU
--- NOTE | 2023-06-06 14:24 | MHC.CM.PN ---
CM ATTEMPTED TO SEE PT WHO WAS OFF UNIT CM TO REVISIT
--- NOTE | 2023-06-06 15:28 | P.BOP_ITS ---
Brief Operative Note Date of Service: 06/06/23 Pre-op diagnosis: Left hip intertrochanteric fracture Post-op diagnosis: same Procedure: Open reduction and internal fixation of left hip intertrochanteric fracture with placement of a short gamma nail Implants: Luba short gamma nail measuring 11 mm in diameter by 180 mm in length with a 125 degree neck-shaft angle, standard lag screw measuring 100 mm in length, standard set screw, distal locking bolt measuring 37.5 mm in length Surgeon: Kalpesh Roth MD Anesthesia: GLMA Was an Fishing Vessel Mate used for this Procedure?: No Estimated blood loss (mL): 100 Pathology: none sent Condition: stable Disposition: PACU
--- NOTE | 2023-06-06 15:30 | W.PM.OPN ---
Operative Note Operative Note Date of Service: 06/06/23 Narrative: After the patient was identified as Ronna Jones and her left hip was initialed by myself they were brought to the operating room where general anesthesia was induced by the anesthesiologist in routine fashion. The patient was given 2 g of IV Ancef for infection prophylaxis. The patient was then gently transferred from the hospital bed onto the fracture table. The patient's right lower extremity was placed into the well leg aguirre. The patient's left lower extremity was placed in gentle in-line traction with their patella parallel to the floor. All bony prominences were well padded. C-arm AP and lateral radiographs were taken to confirm good fracture reduction. The patient's left hip region was prepped and draped in sterile fashion. A formal time-out was completed. A #10 scalpel blade was used to make a 5 cm incision just proximal to the tip of the greater trochanter. A curved cannulated awl was introduced into the proximal femur in routine fashion. A ball-tipped guidewire was then placed through the cannula and into the femoral canal. The awl was removed. Reaming was begun with a 9 mm reamer. Reaming was increased incrementally up to a size 13 reamer distally. The proximal canal was reamed with a 15.5 mm reamer. The gamma nail measuring 11 mm in diameter by 180 mm in length was passed over the guidewire. Good fracture reduction and nail positioning were confirmed using C-arm AP and lateral radiographs. A 2 cm incision was then made where the lag screw trocar met the patient's lateral thigh. The subcutaneous tissues and fascia selene were split down to the lateral cortex of the femur using a hemostat. The lag screw trocar was passed down to the lateral cortex of the femur. A threaded guidewire was then placed into the inferior aspect of the femoral head on the AP x-ray and the center of the femoral head on the lateral x-ray. The guidewire measured 100 mm in length. Reaming was then performed over the guidewire to a depth of 100 mm. The lag screw measuring 100 mm in length was then placed over the guidewire. The guidewire was removed. The set screw was then placed into the nail and tightened fully. It was then turned 1/4 of a turn counter-clockwise to allow for fracture compression. The end cap was then put into place in routine fashion. A 2 cm incision was then made where the distal locking bolt trocar met the lateral aspect of the patient's thigh. The subcutaneous tissues and the fascia selene were split down to the lateral cortex of the femur. The locking bolt hole was drilled in routine fashion. The drill bit measured 37.5 mm in length. The distal locking bolt measuring 37.5 mm in length was put into place without difficulty. Final AP and lateral radiographs showed good fracture reduction and hardware positioning. All 3 wounds were irrigated with copious amounts of normal saline solution. The distal 2 wounds were closed with 2-0 Vicryl and skin dontrell. The proximal wound was once again irrigated. The fascia selene was closed with 0 Vicryl [id number] interrupted suture. The wound was once again irrigated. The subcutaneous tissues were closed with 2-0 Vicryl interrupted suture. The skin was closed with skin dontrell. Dry sterile dressing was placed over all incisions. The patient was gently transferred from the fracture table onto their hospital bed. The patient was awoken and extubated in the operating room. The patient was transferred to the recovery room in stable condition.
[2023-06-06] MEDS: oxyCODONE HCl Immed Release 5 MG TABLET 2.5 MG PO (16:21)
[2023-06-06] MEDS: 0.9 % Sodium Chloride Flush 3 ML SYRINGE IVFLUSH (16:22)
[2023-06-06] MEDS: ceFAZolin Sodium/Dextrose,Iso 2 GM/50 ML PIGGYBACK IV (19:15)
[2023-06-06] MEDS: Sulfamethox/Trimeth 800/160 TABLET 1 TAB PO (19:16)
[2023-06-06] MEDS: Ascorbic Acid 500 MG TABLET 1000 MG PO (19:17)
[2023-06-06] MEDS: Aspirin 325 MG TABLET PO (19:17)
--- NOTE | 2023-06-06 19:23 | PC.NURSE ---
Verified with EBEN Avery,Aspirin can be administered
--- NOTE | 2023-06-06 22:49 | PC.NURSE ---
patient unable to urinate,bladder scanned by ESTEFANI zayas 586 ml,Dr. Harrison notified,awaiting new orders
[2023-06-07] MEDS: oxyCODONE HCl Immed Release 5 MG TABLET PO ×4 (00:10→14:45)
[2023-06-07] MEDS: Lactated Ringers 1,000 ML 80 ML IVCONT (01:13)
--- NOTE | 2023-06-07 02:10 | PC.NURSE ---
during shift change report, rn stated patient with no void since coming to the floor, 08-20 shift did a bladder scan with a result of 586ml. pt with purewick in place, 08-20 rn alerted hospitalist and a st cath order came thru around 2330. assessment by this senior mortgage underwriter and pt was feeling the urge to void and some bladder pressure. The st catherization was explained and was just about to be carried thru and pt stated so can I just go , purewick education provided and pt proceeded to output 575ml yellow urine to canister. bladder scanned after void for 176ml and pt would like to wait a little to see if able to void, she stated no bladder pain or pressure after voiding. Shortly afterwards small amount urine to bed pad noted. skin care provided and repositioned. will continue to monitor output.
[2023-06-07 03:11] VITALS: BP 123/60; PULSE 75; RESP 16; TEMP 36.1; O2SAT 94
[2023-06-07] MEDS: ceFAZolin Sodium/Dextrose,Iso 2 GM/50 ML PIGGYBACK IV ×2 (04:13→10:51)
--- NOTE | 2023-06-07 06:54 | PC.NURSE ---
0545 patient incontinent of urine and also voided 300ml to purewick. skin care and repositioned with assist of 2.
[2023-06-07 07:07] LABS: Hematocrit 39.1 % (37.0-47.0); Hemoglobin 12.8 g/dl (12.0-16.0)
[2023-06-07] MEDS: Ascorbic Acid 500 MG TABLET PO (07:07)
[2023-06-07] MEDS: Aspirin 325 MG TABLET PO ×2 (07:07→20:05)
[2023-06-07] MEDS: Ascorbic Acid 500 MG TABLET 1000 MG PO ×3 (07:07→20:03)
[2023-06-07] MEDS: Sulfamethox/Trimeth 800/160 TABLET 1 TAB PO ×2 (07:07→20:05)
[2023-06-07 07:25] VITALS: BP 148/67; PULSE 74; RESP 16; TEMP 37; O2SAT 96
[2023-06-07 07:26] LABS: Anion Gap 11 (12-20); Blood Urea Nitrogen 10 mg/dL (9-16); Calcium 9.2 mg/dL (8.4-10.2); Carbon Dioxide 27 mmol/L (22-29); Chloride 105 mmol/L (96-108); Creatinine Clr Calc Pharmacy 51.3; Estimated Glomerular Filt Rate > 60; Glucose Fasting 98 mg/dL (60-99); Potassium 4.4 mmol/L (3.3-5.1); Sodium 139 mmol/L (135-145)
[2023-06-07 09:05] VITALS: BP 148/67; PULSE 74; O2SAT 96
--- NOTE | 2023-06-07 10:33 | P.PNIM_ITS ---
Subjective Subjective Date of Service: 06/07/23 Interval History: Being followed for left femur fracture and mechanical fall Feeling better good pain control left hip participated with physical therapy, denies chest pain, no lightheadedness, no dizziness, no nausea, no vomiting, no abdominal pain tolerating diet. No urinary symptoms of urgency or frequency. Review of Systems All other system reviewed and negative Physical Exam 2 Vital Signs: Vital Signs: Last Vital Signs Temp 98.6 F 06/07/23 07:25 Pulse 74 06/07/23 09:05 Resp 16 06/07/23 07:25 BP 148/67 H 06/07/23 09:05 Pulse Ox 96 06/07/23 09:05 O2 Del Method Room Air 06/07/23 07:25 O2 Flow Rate 2 06/06/23 16:10 BMI result Body Mass Index 27.3 Const: Other: General awake alert x3, resting comfortably in no acute distress. Neck supple no JVD. CVS regular rate rhythm, Respiratory lungs clear to auscultation, no respiratory distress, no wheeze, no rhonchi. Gastrointestinal abdomen soft, non tender, bowel sounds audible, no guarding , no rigidity. Extremities no edema. Left hip dressing in place Neuro non focal Skin no rash Psych appropriate affect Objective Data Active Medications Acetaminophen (Acetaminophen 325 Mg Tablet) 650 mg PO Q6H PRN PRN Reason: Pain, Mild (Pain Scale 1-3) Last Admin: 06/05/23 15:06 Dose: 650 mg Documented By: COTEMA Acetaminophen (Acetaminophen Supp 650 Mg Supp.Rect) 650 mg DC Q6H PRN PRN Reason: Pain, Mild (Pain Scale 1-3) Al Hydroxide/Mg Hydroxide (Magnesium Hydrox/Alum Hydrox 30 Ml Oral.Susp) 30 ml PO Q4H PRN PRN Reason: Heartburn/Nausea Ascorbic Acid (Ascorbic Acid 500 Mg Tablet) 500 mg PO DAILY [facility] Last Admin: 06/07/23 07:07 Dose: 500 mg Documented By: TABITHA Ascorbic Acid (Ascorbic Acid 500 Mg Tablet) 1,000 mg PO TID [facility] Last Admin: 06/07/23 07:07 Dose: 1,000 mg Documented By: TABITHA Aspirin (Aspirin 325 Mg Tablet) 325 mg PO BID [facility] Last Admin: 06/07/23 07:07 Dose: 325 mg Documented By: TABITHA Benzonatate (Benzonatate 100 Mg Capsule) 100 mg PO TID PRN PRN Reason: Cough Lactated Ringer's (Lr) 1,000 mls @ 80 mls/hr IVCONT .[id number] [facility] Last Admin: 06/07/23 01:13 Dose: 80 mls/hr Documented By: GRAYSON Cefazolin Sodium/Dextrose (Ancef) 2 gm in 50 mls @ 100 mls/hr IV Q8H [facility] Stop: 06/07/23 13:00 Last Infusion: 06/07/23 04:43 Dose: Infused Documented By: GRAYSON Melatonin (Melatonin 3 Mg Tablet) 3 mg PO BEDTIME PRN PRN Reason: Insomnia Morphine Sulfate (Morphine Sulfate 2 Mg/Ml Cartridge) 1 mg IVPUSH Q3H PRN; Protocol PRN Reason: Pain, Moderate(Pain Scale 4-6) Morphine Sulfate (Morphine Sulfate 2 Mg/Ml Cartridge) 2 mg IVPUSH Q4H PRN PRN Reason: Pain, Severe (Pain Scale 7-10) Ondansetron HCl (Ondansetron Hcl 4 Mg/2 Ml Vial) 4 mg IVPUSH Q8H PRN PRN Reason: Nausea and Vomiting Ondansetron HCl (Ondansetron Hcl 4 Mg/2 Ml Vial) 4 mg IVPUSH ONCE PRN PRN Reason: Nausea and Vomiting Oxycodone HCl (Oxycodone Hcl Immed Release 5 Mg Tablet) 2.5 mg PO Q3H PRN PRN Reason: Pain, Moderate(Pain Scale 4-6) Last Admin: 06/06/23 16:21 Dose: 2.5 mg Documented By: TABITHA Oxycodone HCl (Oxycodone Hcl Immed Release 5 Mg Tablet) 5 mg PO Q3H PRN PRN Reason: Pain, Severe (Pain Scale 7-10) Last Admin: 06/07/23 07:08 Dose: 5 mg Documented By: TABITHA Sodium Chloride (0.9 % Sodium Chloride Flush 3 Ml Syringe) 3 ml IVFLUSH [facility] Last Admin: 06/07/23 07:07 Dose: Not Given Documented By: TABITHA Non-Admin Reason: IV Running Sodium Chloride (0.9 % Sodium Chloride Flush 3 Ml Syringe) 3 ml IVFLUSH [facility] Last Admin: 06/07/23 07:07 Dose: Not Given Documented By: TABITHA Non-Admin Reason: Med Not Available Trimethoprim/Sulfamethoxazole (Sulfamethox/Trimeth 800/160 Tablet) 1 tab PO BID [facility] Last Admin: 06/07/23 07:07 Dose: 1 tab Documented By: TABITHA Labs 06/07/23 06:37 06/07/23 06:37 Labs: Laboratory Results - last 24 hr 06/07/23 06:37 Anion Gap 11 L Estim Creat Clear Calc 51.3 Estimated GFR > 60 Fasting Glucose 98 Calcium 9.2 Assessment and Plan (1) Femur fracture, left: Status: Acute Plan 77-year-old female with no significant past medical history recently diagnosed to have COVID infection 2 weeks ago was recuperating at home taking high-dose vitamin-C and zinc, 3 days ago diagnosed to have UTI and was started on Bactrim, patient fell last night with left hip pain therefore came to ED ct left hip showed nondisplaced oblique fracture through the proximal diaphysis of the left femur which extends from the lesser trochanter into the lateral surface of the femoral diaphysis. Status post surgery for left femur fracture postoperative day 1 Good pain control continue oxycodone/morphine Stable CBC, encourage IS, stool softeners DC IV fluids/PT UTI recently treated outpatient for UTI blood culture showed no growth no further antibiotics needed Recent COVID infection diagnosed 2 weeks ago, no hypoxia, continue supportive care. DVT prophylaxis asa 325 bid Code status DNR DNI. In my clinical judgment patient need continued inpatient stay for postoperative management for left femur surgery and safe disposition. Quality Stroke Does the patient have a stroke diagnosis?: No VTE Prior VTE?: No VTE Risk Level:: Medical - moderate - high VTE Device Contraindication: Treatment Not Indicated VTE Drug Contraindication: N/A - Med Ordered
[2023-06-07] MEDS: Docusate Sodium 100 MG CAPSULE 200 MG PO (10:52)
--- NOTE | 2023-06-07 11:24 | HO.POSTANES ---
Post Anesthesia Evaluation Post Anesthesia Evaluation Date of Service: 06/06/23 Vital Signs: Vital Signs Temp Pulse Resp BP Pulse Ox O2 Del Method 06/07/23 09:05 74 148/67 H 96 06/07/23 07:25 98.6 F 74 16 148/67 H 96 Room Air 06/07/23 03:11 96.9 F 75 16 123/60 94 Room Air 06/06/23 23:36 97.2 F 86 16 135/59 L 94 Room Air Anesthesia: General Endotracheal-GETA Mental Status: Awake Pain Control: Satisfactory Nausea/Vomiting: None Hydration: Adequate Anesthesia-Related Issues: No Anes. Related Issues
[2023-06-07 11:56] VITALS: BP 155/65; PULSE 93; RESP 18; TEMP 36.6; O2SAT 95
--- NOTE | 2023-06-07 14:07 | MHC.CM.PN ---
Addendum entered by Lisa Grijalva 06/07/23 15:12: A bed offer has been received from [facility]. The patient has accepted the rehab bed at [facility]. Patient will travel via BLS. Original Note: IMM 06/07/23 Female 77 ORIF L Femur. She lives in an apartment with another sister. New HCP documented Head of the order is HCP SR Natalie Baird. She is independent at baseline. PT and OT recommend STR. Patients preference is [facility]. A referral has been sent. A referral has been sent to [facility] at patients request. DP STR via BLS. [facility] once patient is discharged to home. CM will follow for discharge.
[2023-06-07] MEDS: Acetaminophen 325 MG TABLET 650 MG PO ×2 (14:18→20:04)
[2023-06-07] MEDS: oxyCODONE HCl Immed Release 5 MG TABLET 2.5 MG PO ×2 (14:19→20:02)
[2023-06-07] MEDS: 0.9 % Sodium Chloride Flush 3 ML SYRINGE IVFLUSH (15:38)
[2023-06-07 15:58] VITALS: BP 116/56; PULSE 93; RESP 16; TEMP 37.3; O2SAT 92
[2023-06-07 19:04] VITALS: BP 127/58; PULSE 96; RESP 17; TEMP 36.7; O2SAT 92
[2023-06-08] VITALS: BP 120/61; PULSE 90; RESP 17; TEMP 36.6; O2SAT 92
[2023-06-08] MEDS: 0.9 % Sodium Chloride Flush 3 ML SYRINGE IVFLUSH ×2 (01:20→09:38)
[2023-06-08 03:42] VITALS: BP 143/62; PULSE 85; RESP 17; TEMP 36.7; O2SAT 93
[2023-06-08 07:39] VITALS: BP 138/61; PULSE 92; RESP 18; TEMP 36.9; O2SAT 95
--- NOTE | 2023-06-08 09:06 | MHC.CM.PN ---
Addendum entered by Lisa Grijalva 06/08/23 11:43: DC Summary and Packet sent to STR via [employer]. Original Note: IMM 06/07/23 s/p TAMAR PINA. Patient discharged today. She will transfer to [facility] for [facility]. Transport is booked for 12:30pm. picking supervisor. She will travel via BLS.
[2023-06-08] MEDS: Acetaminophen 325 MG TABLET 650 MG PO (09:32)
[2023-06-08] MEDS: oxyCODONE HCl Immed Release 5 MG TABLET 2.5 MG PO (09:33)
[2023-06-08] MEDS: Docusate Sodium 100 MG CAPSULE 200 MG PO (09:33)
[2023-06-08] MEDS: Ascorbic Acid 500 MG TABLET 1000 MG PO (09:33)
[2023-06-08] MEDS: Aspirin 325 MG TABLET PO (09:33)
[2023-06-08] MEDS: Sulfamethox/Trimeth 800/160 TABLET 1 TAB PO (09:34)
[2023-06-08 09:59] VITALS: BP 138/61; PULSE 92; O2SAT 95
--- NOTE | 2023-06-08 11:07 | PM.DS ---
DS: Providers Provider Date of Service: 06/08/23 Date of admission: 06/05/23 11:57 Primary care physician: Kahlil Chen MD DS: Diagnosis Discharge Diagnosis (1) Femur fracture, left: Status: Acute DS: Summary Hospital Course Hospital Course: History of presenting illness: Date of Service: 06/05/23 Chief Complaint: fall/left hip pain 77-year-old female diagnosed to have COVID 2 weeks ago, and 3 days ago diagnosed to have urinary tract infection on Bactrim day 3, otherwise she denies any significant past medical history of diabetes, no hypertension, no coronary artery disease, presenting to the emergency department for evaluation of left hip pain since 11:00PM last night. Patient states that while she was unplugging her [place] tree, she turned and believes her left foot got caught on the carpet and she fell, striking her left side and left hip. She states that she immediately had left-sided hip pain with radiation to left leg, after the fall she was able to walk to her recliner but was unable to weightbear on left leg, therefore came to emergency room, she denies head injury, no loss of consciousness no symptoms of lightheadedness dizziness, chest pain or shortness of breath prior to fall , she denies symptoms of nausea, vomiting or diarrhea, her urinary symptoms of frequency and dysuria have resolved. 77-year-old female with no significant past medical history recently diagnosed to have COVID infection 2 weeks ago was recuperating at home taking high-dose vitamin-C and zinc, 3 days ago diagnosed to have UTI and was started on Bactrim, patient fell last night with left hip pain therefore came to ED ct left hip showed nondisplaced oblique fracture through the proximal diaphysis of the left femur which extends from the lesser trochanter into the lateral surface of the femoral diaphysis. Status post surgery for left femur fracture on 06/06, postoperatively have good pain control continue Tylenol and oxycodone scheduled ,as well as as needed oxycodone, continue stool softeners and incentive spirometry patient is being discharged to rehab facility for continued physical therapy, stable hematocrit post surgery, on aspirin twice daily for DVT prophylaxis Outpatient follow-up with Orthopedic surgery, call for appointment. UTI recently treated and has finished course of antibiotics. Recent COVID infection diagnosed 2 weeks ago, no hypoxia, continue supportive care. Time Attestation Discharge coordination time: Greater than 30 minutes Quality: Safe Use of Opioids Does Pt have an Active Cancer Diagnosis on the Problem List?: No Quality: Stroke Does the patient have a stroke diagnosis?: No Physical Exam Vital Signs: Vital Signs: Last Vital Signs Temp 98.5 F 06/08/23 07:39 Pulse 92 06/08/23 09:59 Resp 18 06/08/23 07:39 BP 138/61 06/08/23 09:59 Pulse Ox 95 06/08/23 09:59 O2 Del Method Room Air 06/08/23 07:39 O2 Flow Rate 2 06/06/23 16:10 BMI result Body Mass Index 27.3 Const: Other: General awake alert x3, resting comfortably in no acute distress. Neck supple no JVD. CVS regular rate rhythm, Respiratory lungs clear to auscultation, no respiratory distress, no wheeze, no rhonchi. Gastrointestinal abdomen soft, non tender, bowel sounds audible, no guarding , no rigidity. Extremities no edema. Left hip dressing in place. Neuro non focal Skin no rash Psych appropriate affect Discharge Plan Discharge Anticipated Discharge Date/Time: 06/08/23 10:47 Patient Disposition: Xfer SNF Discharge Diagnosis: Left femur fracture status post surgery Referrals: [facility] [Outside] - 1 Week Tori Prince PA-C [Physician Cloth Spreader Screen Printing] - 2 Weeks (06/22/23 11:30 [facility] Tori Prince PA-C) Kahlil Chen MD [Primary Care Provider] - 1 Week Discharge Medications: New acetaminophen 325 mg Tablet 650 mg PO TID Qty: 20 0RF aspirin 325 mg Tablet 325 mg PO BID Qty: 56 0RF docusate sodium 100 mg Capsule 200 mg PO DAILY Qty: 30 0RF oxycodone 5 mg Tablet 2.5 mg PO TID Qty: 20 0RF Rx Instructions: Partial Fill upon patient request. polyethylene glycol 3350 17 gram Powder In Packet 17 g PO DAILY Qty: 30 0RF oxycodone 5 mg Tablet 5 mg PO Q4H PRN (Reason: Pain, Severe (Pain Scale 7-10)) Qty: 15 0RF Rx Instructions: Partial Fill upon patient request. Discontinued sulfamethoxazole-trimethoprim 800-160 mg tablet 1 tab PO BID ascorbic acid (vitamin C) [Vitamin C] 1,000 mg Tablet 1 g PO TID acetaminophen 325 mg Tablet 650 mg PO Q6H PRN (Reason: Pain) Probiotic 3 billion cell Capsule 3,000 mmu cells PO DAILY Rx Instructions: administer with a meal ZICAM 1 tab PO Q4H Discharge Orders: Discharge Order (Routine); Ordered 06/08/23 Ordered By: Jennifer Lennon Diet: Advance to usual diet Activity on Discharge: As tolerated Stand Alone Forms: Patient Portal Discharge page Care Plan Goals: To rehab facility for left hip surgery continue pain medication as ordered Continue incentive spirometry and stool softeners Health Concerns: No chronic medical issues Plan of Treatment: Gait training, strengthening, ADLs Continue ASA for dvt ppx x4 weeks Keep dressing clean,dry and intact-no showering or tub baths Follow up with Orthopedics in 2 weeks Assessment: As above
[2023-06-08 11:59] VITALS: BP 137/65; PULSE 79; RESP 18; TEMP 36.7; O2SAT 94
[2023-06-08 12:00] VITALS: O2SAT 95
== END 2023-06-08 12:25 | disposition skilled nursing facility (03) | DRG 481 ==
LOC: HO.ED 10:10 → HO.EDOVER 11:57 → HO.S3 12:11
PROVIDERS: Orthopaedic Surgery; Physician Assistant Medical; Admitting Provider Hospitalist; Emergency Provider Internal Medicine; PCP Family Medicine; Visit Provider Hospitalist
PROC: 0QS704Z Reposition Left Upper Femur with Internal Fixation Device, Open Approach (ICD-10-PCS; principal; 2023-06-06 13:00)
DX: S72.142A Displaced intertrochanteric fracture of left femur, initial encounter for closed fracture (principal); N39.0 Urinary tract infection, site not specified; Z66 Do not resuscitate; W19.XXXA Unspecified fall, initial encounter; Z79.899 Other long term (current) drug therapy
CPT/HCPCS: 36415; 70450; 72125; 73552; 73700; 80048; 80076; 81001; 82550; 84484; 85014; 85018; 85025; 86850; 86900; 86901; 87086; 93005; 97116; 97162; 97166; 97530; 97535; 99285; C1713; C1769; J0131; J0690; J0696; J1100; J1650; J2270; J2405; J2704; J3010; J7120

== ENCOUNTER → 2023-06-05 06:15 | Outpatient (BNV) | payer MEDICARE, MEDICAID, SELFPAY | PROVIDERS: Emergency Provider Internal Medicine; PCP Family Medicine; Visit Provider Internal Medicine Cardiovascular Disease | DX: R94.31 Abnormal electrocardiogram [ECG] [EKG] (principal) | CPT/HCPCS: 93010 ==

== ENCOUNTER → 2023-06-05 11:57 | Outpatient (BNV) | payer MEDICARE, MEDICAID, SELFPAY | PROVIDERS: Admitting Provider Hospitalist; Emergency Provider Internal Medicine; PCP Family Medicine; Visit Provider Hospitalist | DX: S72.92XA Unspecified fracture of left femur, initial encounter for closed fracture (principal) | CPT/HCPCS: 99223; 99232; 99233; 99239 ==

== ENCOUNTER → 2023-06-05 11:57 | Outpatient (BNV) | payer MEDICARE, MEDICAID, SELFPAY | PROVIDERS: Admitting Provider Hospitalist; Emergency Provider Internal Medicine; PCP Family Medicine; Visit Provider Orthopaedic Surgery | DX: S72.142A Displaced intertrochanteric fracture of left femur, initial encounter for closed fracture (principal) | CPT/HCPCS: 27245; 99223 ==

== ENCOUNTER 2023-06-22 10:35 | Outpatient (REF) | payer OTHER, MEDICARE, MEDICAID, SELFPAY ==
--- NOTE | ~2023-06-22 | XR_ITS ---
EXAMINATION: XR FEMUR, LEFT CLINICAL INFORMATION: Fracture left femur. COMPARISON: Radiograph left femur 06/05/2023. TECHNIQUE: AP and lateral views of the left femur were obtained. FINDINGS: Interval placement of intramedullary nail in the left femur with obliquely oriented proximal compression screw and horizontally oriented distal cannulated screw. No evidence of hardware fracture or failure. Anatomic alignment. No interval injuries. Expected postoperative swelling seen with skin dontrell. XR/XR femur LT 2V IMPRESSION: Interval placement of intramedullary nail in the left femur without evidence of hardware failure or new fracture.
== END 2023-06-22 10:36 | disposition home or self-care (01) ==
LOC: HO.HOSX 10:35
PROVIDERS: Visit Provider Physician Assistant
DX: S72.92XD Unspecified fracture of left femur, subsequent encounter for closed fracture with routine healing (principal)
CPT/HCPCS: 73552; 99212

== ENCOUNTER 2023-06-22 11:20 | Outpatient (AMB) | payer MEDICARE, MEDICAID, SELFPAY ==
[2023-06-22 11:41] VITALS: BMI 25.7
--- NOTE | 2023-06-22 11:41 | A.OFFVIS_ITS ---
Intake Vital Signs 06/22/23 11:41 Height 5 ft 3 in Weight 145 lb BMI 25.7 Intake Visit Reasons: PO - Left hip IMN 06/06/23 Intake Note: Ronna is a 77 year old female who presents today for a post op appointment s/p left hip IMN 06/06/23 Patient reports over the last 5-6 days she has not had any pain and taking Tylenol for the pain. She states she is doing PT about twice a day and slowly starting to walk more. Allergies No Known Allergies Allergy (Verified 06/22/23 11:43) HPI PO - Left hip IMN 06/06/23 HPI Details 77-year-old female who presents in the o ice today 16 days status post open reduction and internal fixation of left hip intertrochanteric fracture with placement of a short gamma nail, which was performed on 06/06/[address] Roth. The patient reports she was taking Tylenol for pain, however, over the last 5-6 days she has not had any pain. She claims she has been doing physical therapy twice daily and is slowly starting to ambulate more. [facility] Social History Household Members: Other Housing: Assisted Living Facility Housing Other:: [facility] Unable to assess alcohol history related to: Unknown Patient Tobacco Use Status: Never used Tobacco service: No Review of Systems Const All systems reviewed & are unremarkable except as noted in HPI and below Physical Exam Vital Signs: BMI result Body Mass Index 25.7 Const General: cooperative, healthy appearing and no acute distress Resp Effort & Inspection: normal respiratory effort and able to speak in complete sentences Cardio Rate: regular rate Peripheral pulses: Peripheral pulses 2+ throughout GI Palpation (GI): Soft to palpation Skin Lesions: no lesions Rashes: no rashes Extrem Other: Left hip: Incision site is clean, dry, and intact. Copake intact. No surrounding erythema or drainage. No signs of infection. Patient is ambulating with a walker. NVI. Assessment & Plan Assessment & Plan (1) Femur fracture, left: Comment: open reduction and internal fixation of left hip intertrochanteric fracture with placement of a short gamma nail 06/06/2023 Dr. Roth Code(s): S72.92XA - Unspecified fracture of left femur, initial encounter for closed fracture Qualifiers: Encounter type: subsequent encounter Femur location: unspecified portion of femur Fracture healing: with routine healing Fracture morphology: unspecified fracture morphology Fracture type: closed Qualified Code(s): S72.92XD - Unspecified fracture of left femur, subsequent encounter for closed fracture with routine healing Plan Ms. Jones is a 77-year-old female who presents in the office today 16 days status post open reduction and internal fixation of left hip intertrochanteric fracture with placement of a short gamma nail, which was performed on 06/06/[address] Roth. The patient reports she was taking Tylenol for pain, however, over the last 5-6 days she has not had any pain. She claims she has been doing physical therapy twice daily and is slowly starting to ambulate more. Geovanny were removed and steri-stripes were applied. The patient will continue to work with physical therapy on glute, quad, core strengthening, and gait training. She plans to be discharged next week from [facility]. They have set up [facility] for outpatient physical therapy through the [facility]. Follow up will be in 4 weeks with repeat x-rays, or sooner if needed. X-rays of the left hip which were obtained while in the office today and were reviewed by me, Tori Prince PA-C, revealed orthopedic hardware intact with routine healing. Orders: Orders XR femur LT 2V Today S72.92XA - Unspecified fracture of left femur, initial encounter for closed fracture Patient Instructions: Scribed for Tori Prince PA-C by Mima Trinh medical language specialist, on 06/22/2023 at 11:22 am, EST. Coding Level of Care Code Global (42707) Diagnoses Closed fracture of left femur with routine healing, unspecified fracture morphology, unspecified portion of femur, subsequent encounter S72.92XD Encounter type: subsequent encounter Femur location: unspecified portion of femur Fracture healing: with routine healing Fracture morphology: unspecified fracture morphology Fracture type: closed
== END 2023-06-22 12:22 | disposition home or self-care (01) ==
PROVIDERS: PCP Family Medicine; Visit Provider Physician Assistant
DX: S72.92XD Unspecified fracture of left femur, subsequent encounter for closed fracture with routine healing (principal)
CPT/HCPCS: 99024

== ENCOUNTER 2023-07-20 09:18 | Outpatient (AMB) | payer MEDICARE, MEDICAID, SELFPAY ==
[2023-07-20 09:28] VITALS: BMI 25.7
--- NOTE | 2023-07-20 09:28 | A.OFFVIS_ITS ---
Intake Vital Signs 07/20/23 09:28 Height 5 ft 3 in Weight 145 lb BMI 25.7 Intake Visit Reasons: PO - Left hip IMN 06/06/23 Intake Note: Ronna is a 77 year old female who presents today for a post op appointment s/p left hip IMN 06/06/23 Patient reports no pain or discomfort at the moment. She states that PT is going well and she is showing improvements. Allergies No Known Allergies Allergy (Verified 07/20/23 09:29) HPI PO - Left hip IMN 06/06/23 HPI Details 77-year-old female who presents in the o ffice today 6 weeks status post open reduction and internal fixation of left hip intertrochanteric fracture with placement of a short gamma nail, which was performed on 06/06/[address] Roth. I last saw the patient in the office on 06/22/2023 where she was set up [facility] for outpatient physical therapy through the [facility]. While in the office today the patient reports having no pain or discomfort. She states physical therapy is going well and she is showing signs of improvement. [facility] Social History Household Members: Other Housing: Assisted Living Facility Housing Other:: [facility] residence Unable to assess alcohol history related to: Unknown Patient Tobacco Use Status: Never used Tobacco service: No Review of Systems Const All systems reviewed & are unremarkable except as noted in HPI and below Physical Exam Vital Signs: BMI result Body Mass Index 25.7 Const General: cooperative, healthy appearing and no acute distress Resp Effort & Inspection: normal respiratory effort and able to speak in complete sentences Cardio Rate: regular rate Peripheral pulses: Peripheral pulses 2+ throughout GI Palpation (GI): Soft to palpation Skin Lesions: no lesions Rashes: no rashes Extrem Other: Left hip: Full ROM in planes. No signs of infection. NVI. Assessment & Plan Assessment & Plan (1) Femur fracture, left: Comment: open reduction and internal fixation of left hip intertrochanteric fracture with placement of a short gamma nail 06/06/2023 Dr. Roth Code(s): S72.92XA - Unspecified fracture of left femur, initial encounter for closed fracture Qualifiers: Encounter type: subsequent encounter Femur location: unspecified portion of femur Fracture healing: with routine healing Fracture morphology: unspecified fracture morphology Fracture type: closed Qualified Code(s): S72.92XD - Unspecified fracture of left femur, subsequent encounter for closed fracture with routine healing Plan Ms. Jones is a 77-year-old female who presents in the office today 6 weeks status post open reduction and internal fixation of left hip intertrochanteric fracture with placement of a short gamma nail, which was performed on 06/06/[address] Roth. I last saw the patient in the office on 06/22/2023 where she was set up [facility] for outpatient physical therapy through the [facility]. While in the office today the patient reports having no pain or discomfort. She states physical therapy is going well and she is showing signs of improvement. The patient will continue to work with physical therapy and occupational therapy at home. She is currently ambulating with a walker. I would like for her to transition to a cane once physical therapy feels it is safe to do so. Follow up will be in 6 weeks, or sooner if needed. X-rays of the left hip which were obtained while in the office today and were reviewed by me, Tori Prince PA-C, revealed intact orthopedic hardware with routine healing. Orders: Orders XR hip LT w PEL1V Today M25.559 - Pain in unspecified hip Patient Instructions: Scribed by Mima Trinh biomedical specialist, for Tori Prince PA-C on 07/20/2023 at 9:19 am, EST. Coding Level of Care Code Global (78221) Diagnoses Closed fracture of left femur with routine healing, unspecified fracture morphology, unspecified portion of femur, subsequent encounter S72.92XD Encounter type: subsequent encounter Femur location: unspecified portion of femur Fracture healing: with routine healing Fracture morphology: unspecified fracture morphology Fracture type: closed
== END 2023-07-20 10:03 | disposition home or self-care (01) ==
PROVIDERS: PCP Family Medicine; Visit Provider Physician Assistant
DX: S72.92XD Unspecified fracture of left femur, subsequent encounter for closed fracture with routine healing (principal)
CPT/HCPCS: 99024

== ENCOUNTER 2023-07-20 09:23 | Outpatient (REF) | payer MEDICARE, MEDICAID, SELFPAY ==
--- NOTE | ~2023-07-20 | XR_ITS ---
EXAMINATION: XR HIP, LEFT CLINICAL INFORMATION: Pain COMPARISON: Femur radiographs 06/22/2023 TECHNIQUE: Two views of the left hip and one view of the pelvis. FINDINGS: Status post ORIF of the left hip through a healing nondisplaced proximal femoral fracture with bridging bony callus formation. No evidence of hardware fracture or complication. Mild osteoarthritis of the hips. Soft tissues are unremarkable. XR/XR hip LT w PEL1V IMPRESSION: 1. Status post ORIF of the left hip through a healing nondisplaced proximal femoral fracture with bridging bony callus formation. No evidence of hardware fracture or complication. 2. Mild osteoarthritis of the hips.
== END 2023-07-20 09:24 | disposition home or self-care (01) ==
LOC: HO.HOSX 09:23
PROVIDERS: Visit Provider Physician Assistant
DX: S72.92XD Unspecified fracture of left femur, subsequent encounter for closed fracture with routine healing (principal)
CPT/HCPCS: 73502; 99212

== ENCOUNTER 2023-07-21 08:17 | Outpatient (REF) | payer MEDICARE, MEDICAID, SELFPAY ==
[2023-07-21 10:56] LABS: MANUAL DIFF FLAG NO
[2023-07-21 10:59] LABS: Basophils Percent Auto 0.6 % (0-2); Eosinophils Absolute Auto 0.2 X10*3/uL (0.0-0.4); Eosinophils Percent Auto 2.6 % (0-4); Hematocrit 40.4 % (37.0-47.0); Hemoglobin 13.2 g/dl (12.0-16.0); Imm Gran Abs Auto 0.01 X10*3/uL (0.00-0.03); Imm Gran Pct Auto 0.2 % (0.0-0.4); Lymphocytes Absolute Auto 1.9 X10*3/uL (1.2-4.9); Lymphocytes Percent Auto 31.2 % (20-40); Mean Corpuscular HGB Conc 32.7 g/dl (31.0-35.0); Mean Corpuscular Volume 97.8 fL (80.0-98.0); Mean Platelet Volume 9.6 fL (9.4-12.3); Monocytes Absolute Auto 0.7 X10*3/uL (0.1-1.2); Monocytes Percent Auto 11.5 % (2-11); Neutrophils Absolute Auto 3.3 x10*3/uL (2.0-8.3); Neutrophils Percent Auto 53.9 % (45-73); Platelet Count 212 X10*3/uL (160-400); Red Blood Count 4.13 X10*6/uL (4.20-5.50); Red Cell Distribution Width 13.6 % (11.0-16.0); White Blood Count 6.2 X10*3/uL (4.8-10.8)
[2023-07-21 11:12] LABS: Appearance Urine Cloudy; Color Urine Yellow; Glucose Urine UA Negative (Negative); Leukocyte Esterase Urine Large (3+) (Negative); Nitrite Urine Negative (Negative); Specific Gravity - Urine 1.015 (1.005-1.025); UMIC TRIGGER UA YES; Urine Blood Trace (Negative); Urine Ketones Negative (Negative); Urine Protein Trace mg/dL (Neg-Trace)
[2023-07-21 11:27] LABS: Bacteria Urine Trace (None Seen); Squamous Epithelial Cell Urine 0-2 /HPF (0-2); WBC Urine >50 /HPF (0-5)
== END 2023-07-21 08:18 | disposition home or self-care (01) ==
LOC: HO.10HDL 08:17
PROVIDERS: Visit Provider Family Medicine
DX: R31.9 Hematuria, unspecified (principal); Z86.2 Personal history of diseases of the blood and blood-forming organs and certain disorders involving the immune mechanism
CPT/HCPCS: 36415; 81001; 85025

== ENCOUNTER 2023-09-05 10:42 | Outpatient (REF) | payer MEDICARE, MEDICAID, SELFPAY ==
--- NOTE | ~2023-09-05 | XR_ITS ---
EXAMINATION: XR FEMUR, LEFT CLINICAL INFORMATION: Unspecified fracture of left femur. COMPARISON: 07/20/2023 and 06/22/2023 radiographs TECHNIQUE: AP and lateral views of the left femur were obtained. 4 views total. FINDINGS: The bones are diffusely demineralized. Status post ORIF of previously noted nondisplaced proximal femoral fracture with bridging bony callus formation. Hardware appears intact. Mild degenerative changes in the left hip. Mild periosteal reaction along the proximal medial femur adjacent to the tip of the transfemoral screw. Advanced degenerative changes with medial joint space narrowing and hypertrophic change in the knee. XR/XR femur LT 2V IMPRESSION: Status post ORIF of previously noted nondisplaced proximal femoral fracture with progression of bridging bony callus formation. Mild periosteal reaction along the proximal medial femur adjacent to the tip of the transfemoral screw.
== END 2023-09-05 10:43 | disposition home or self-care (01) ==
LOC: HO.HOSX 10:42
PROVIDERS: Visit Provider Physician Assistant
DX: S72.92XD Unspecified fracture of left femur, subsequent encounter for closed fracture with routine healing (principal); X58.XXXD Exposure to other specified factors, subsequent encounter; Z98.890 Other specified postprocedural states
CPT/HCPCS: 73552; 99212

== ENCOUNTER 2023-09-05 12:24 | Outpatient (AMB) | payer MEDICARE, MEDICAID, SELFPAY ==
[2023-09-05 12:43] VITALS: BMI 25.7
--- NOTE | 2023-09-05 12:43 | MHC.OFFVIS ---
Intake Vital Signs 09/05/23 12:43 Height 5 ft 3 in Weight 145 lb BMI 25.7 Intake Visit Reasons: PO - Left hip IMN 06/06/23 Intake Note: Ronna is a 77 year old female who presents today for a post op appointment s/p left hip IMN 06/06/23 . Patient state she is doing well and has completed home P.T, will be starting out patient P.T tomorrow. Allergies No Known Allergies Allergy (Verified 09/05/23 12:43) HPI PO - Left hip IMN 06/06/23 HPI Details 77-year-old female who presents in the office today 3 months status post open reduction and internal fixation of left hip intertrochanteric fracture with placement of a short gamma nail, which was performed on 06/06/[address] Roth. I last saw the patient in the office on 07/20/2023, when she was encouraged to continue working with physical therapy and occupational therapy at home. I requested for her to transition to the use of a cane, if it was safe to do so.? While in the office today the patient states she is doing well. She confirms completion of home physical therapy. She reports she will be starting outpatient physical therapy tomorrow, 09/06/2023.? [facility] Medical History (Updated 09/05/23 @ 13:03 by Mima Trinh) Hx of fracture of left hip Social History Household Members: Other Housing: Assisted Living Facility Housing Other:: [facility] residence Unable to assess alcohol history related to: Unknown Patient Tobacco Use Status: Never used Tobacco service: No Review of Systems Const All systems reviewed & are unremarkable except as noted in HPI and below Physical Exam Vital Signs: BMI result Body Mass Index 25.7 Const General: cooperative, healthy appearing and no acute distress Resp Effort & Inspection: normal respiratory effort and able to speak in complete sentences Cardio Rate: regular rate Peripheral pulses: Peripheral pulses 2+ throughout GI Palpation (GI): Soft to palpation Skin Lesions: no lesions Rashes: no rashes Extrem Other: Left hip: Normal to inspection. No ecchymosis, erythema, or edema. Full hip ROM in all planes. No tenderness to palpation over the greater trochanteric bursa. 5/5 strength with resisted hip flexion, knee extension, abduction, and abduction. Able to perform straight leg raise. NVI. Assessment & Plan Assessment & Plan (1) Femur fracture, left: Comment: Open reduction and internal fixation of left hip intertrochanteric fracture with placement of a short gamma nail 06/06/2023 Dr. Roth Code(s): S72.92XA - Unspecified fracture of left femur, initial encounter for closed fracture Qualifiers: Encounter type: subsequent encounter Femur location: unspecified portion of femur Fracture healing: with routine healing Fracture morphology: unspecified fracture morphology Fracture type: closed Qualified Code(s): S72.92XD - Unspecified fracture of left femur, subsequent encounter for closed fracture with routine healing Plan Ms. Jones is a 77-year-old female who presents in the office today 3 months status post open reduction and internal fixation of left hip intertrochanteric fracture with placement of a short gamma nail, which was performed on 06/06/[address] Roth. I last saw the patient in the office on 07/20/2023, when she was encouraged to continue working with physical therapy and occupational therapy at home. I requested for her to transition to the use of a cane, if it was safe to do so.? While in the office today the patient states she is doing well. She confirms completion of home physical therapy. She reports she will be starting outpatient physical therapy tomorrow, 09/06/2023.? Patient may return to normal activities as tolerated. She is currently using a cane to aid with ambulation. She has plans to pursue physical therapy for overall conditioning. Follow up with Orthopedics is PRN, or sooner if needed. X-rays of the left femur which were obtained while in the office today and were reviewed by me, Tori Prince PA-C, revealed Orthopedic hardware intact with routine healing. Orders: Orders XR femur LT 2V Today S72.92XA - Unspecified fracture of left femur, initial encounter for closed fracture Patient Instructions: Scribed by Mima Trinh medical associate, for Tori Prince PA-C on 09/05/2023 at 12:37 pm, EST. Coding Level of Care Code Global (32914) Diagnoses Closed fracture of left femur with routine healing, unspecified fracture morphology, unspecified portion of femur, subsequent encounter S72.92XD Encounter type: subsequent encounter Femur location: unspecified portion of femur Fracture healing: with routine healing Fracture morphology: unspecified fracture morphology Fracture type: closed
== END 2023-09-05 13:17 | disposition home or self-care (01) ==
PROVIDERS: PCP Family Medicine; Visit Provider Physician Assistant
DX: S72.92XD Unspecified fracture of left femur, subsequent encounter for closed fracture with routine healing (principal)
CPT/HCPCS: 99213

== ENCOUNTER 2023-10-23 10:00 | Outpatient (RCR) | payer MEDICARE, MEDICAID, SELFPAY ==
--- NOTE | 2023-09-06 13:49 | MHC.PT.EP ---
[facility] [place] Office [place] Office [place] Office [address] Precious Moody [address] [phone] F: [phone] F: [phone] F: [phone] F: [phone] Physical Therapy Plan of Care Date of Evaluation: 09/06/23 Date of Surgery: 06/06/23 Diagnosis: L hip fracture with nailing (DOS: 06/06/23) Assessment: Patient is a pleasant, motivated 77 y.o. female who is referred to PT by Dr. Kalpesh Roth MD with Dx of LEFT hip fracture nailing, surgery performed on 06/06/24. Patient had STR and home PT and now comes to outpatient. Patient impairments include pain, limited ROM, weakness, impaired balance, impaired gait. Patient current functional limitations are lift or carry laundry basket, prolonged standing, prolonged walking, stair use (ascend/descend), rolling on L side. Patient will benefit from skilled PT to address aforementioned impairments and functional limitations to meet established goals. Frequency and Duration: The patient will be seen 2x/week for 4 weeks Short Term Goals: 2 weeks Patient demonstrates consistency and independence with HEP to self manage symptoms. Patient is able to ambulate safely without cane on level surface for 100 ft. Behavioral Assistant Goals: 4 weeks Patient presents with increased L hip flexion strength 5/5 to be able to perform reciprocal stairs for community use. Patient presents with increased L hip glute strength 4+/5 to be able to standing for greater than 15 mins for food prep. Treatment Plan: Modalities to reduce pain, spasms and effusion. Manual therapy to restore motion and function. Therapeutic exercise to improve strength and flexibility. Neuromuscular re-education for posture and balance. Therapeutic activities to return to functional activities of daily living. Electronically signed by: Anibal Billingsley, PT, DPT Please sign and return to therapist. Thank you for your referral.
--- NOTE | 2023-10-23 11:37 | MHC.PT.DC ---
[facility] [place] Office [place] Office [place] Office [address] Precious Moody [address] [facility] [phone] F: [phone] F: [phone] F: [phone] F: [phone] Physical Therapy Discharge Report Diagnosis: L hip fracture with nailing (DOS: 06/06/23) Date of Surgery: 06/06/23 Date of Evaluation: 09/06/23 Date of Discharge: 10/23/23 Treatments to Date: 15 Cancellations to Date: No Shows to Date: Discharge Status: Achieved Goals Improved Function Independent with HEP Discharge Summary: Ronna shows improvement in pain, ROM, strength, gait, outcomes measures; showing both subjective and objective improvement. She demonstrates ability to perform an independent HEP to self manage her symptoms after discharge from PT. We discuss self scar massage to reduce tenderness and sensitivity and continuing with hip strengthening. She agrees to plan. Electronically signed by: Anibal Billingsley, PT, DPT Please sign and return to therapist. Thank you for your referral.
== END 2023-10-23 11:38 | disposition home or self-care (01) ==
LOC: HO.PT 10:00
PROVIDERS: PCP Family Medicine; Visit Provider Orthopaedic Surgery
DX: R29.898 Other symptoms and signs involving the musculoskeletal system (principal)
CPT/HCPCS: 97110; 97112; 97161; 97530

== ENCOUNTER 2024-03-12 08:26 | Outpatient (REF) | payer MEDICARE, MEDICAID, SELFPAY ==
[2024-03-12 08:45] LABS: MANUAL DIFF FLAG NO
[2024-03-12 09:06] LABS: Basophils Percent Auto 0.6 % (0-2); Eosinophils Absolute Auto 0.2 X10*3/uL (0.0-0.4); Eosinophils Percent Auto 3.8 % (0-4); Hematocrit 40.6 % (37.0-47.0); Hemoglobin 13.3 g/dl (12.0-16.0); Imm Gran Abs Auto 0.02 X10*3/uL (0.00-0.03); Imm Gran Pct Auto 0.4 % (0.0-0.4); Lymphocytes Absolute Auto 1.6 X10*3/uL (1.2-4.9); Lymphocytes Percent Auto 32.4 % (20-40); Mean Corpuscular HGB Conc 32.8 g/dl (31.0-35.0); Mean Corpuscular Hemoglobin 32.2 pg (27.0-33.0); Mean Corpuscular Volume 98.3 fL (80.0-98.0); Mean Platelet Volume 9.2 fL (9.4-12.3); Monocytes Absolute Auto 0.7 X10*3/uL (0.1-1.2); Monocytes Percent Auto 13.2 % (2-11); Neutrophils Absolute Auto 2.5 x10*3/uL (2.0-8.3); Neutrophils Percent Auto 49.6 % (45-73); Platelet Count 189 X10*3/uL (160-400); Red Blood Count 4.13 X10*6/uL (4.20-5.50); Red Cell Distribution Width 13.7 % (11.0-16.0)
[2024-03-12 09:41] LABS: Alanine Aminotransferase 8 U/L (0-31); Albumin Level 4.1 g/dL (3.5-5.0); Alkaline Phosphatase 83 U/L (39-117); Anion Gap 12 (12-20); Aspartate Amino Transferase 17 U/L (5-31); Bilirubin Total 0.6 mg/dL (0.0-1.0); Blood Urea Nitrogen 13 mg/dL (9-16); Calcium 9.8 mg/dL (8.4-10.2); Carbon Dioxide 27 mmol/L (22-29); Chloride 109 mmol/L (96-108); Estimated Glomerular Filt Rate > 60; Glucose Random 82 mg/dL (60-115); Potassium 3.8 mmol/L (3.3-5.1); Sodium 144 mmol/L (135-145)
[2024-03-12 09:58] LABS: Free T4 (Free Thyroxine) 0.87 ng/dL (0.71-1.85)
== END 2024-03-12 08:27 | disposition home or self-care (01) ==
LOC: HO.LAB 08:26
PROVIDERS: PCP Family Medicine; Visit Provider Family Medicine
DX: R63.4 Abnormal weight loss (principal)
CPT/HCPCS: 36415; 80053; 84439; 85025

== ENCOUNTER 2024-08-12 14:01 | Outpatient (REF) | payer MEDICARE, MEDICAID, SELFPAY ==
--- NOTE | ~2024-08-12 | XR_ITS ---
EXAMINATION: XR CHEST CLINICAL INFORMATION: BASILAR WHEEZE COMPARISON: None available. TECHNIQUE: 2 views of the chest were obtained. FINDINGS: The lungs are well-expanded and clear acute process. The heart size and pulmonary vascularity is normal. There is moderate dextroscoliosis of dorsolumbar spine. No aggressive lytic or sclerotic process seen. XR/XR chest 2V IMPRESSION: Unremarkable chest exam Electronically signed by: Cristian Bhatti MD 08/12/2024 03:36 PM EST
== END 2024-08-12 14:02 | disposition home or self-care (01) ==
LOC: HO.XRAY 14:01
PROVIDERS: PCP Family Medicine; Visit Provider Family Medicine
DX: R06.2 Wheezing (principal)
CPT/HCPCS: 71046

== ENCOUNTER → 2024-08-12 14:09 | Outpatient (BNV) | payer MEDICARE, MEDICAID, SELFPAY | PROVIDERS: PCP Family Medicine; Visit Provider Radiology Diagnostic Radiology | DX: R06.2 Wheezing (principal) | CPT/HCPCS: 71046 ==

== ENCOUNTER 2025-02-13 10:34 | Outpatient (REF) | payer MEDICARE, MEDICAID, SELFPAY ==
[2025-02-13 13:13] LABS: MANUAL DIFF FLAG NO
[2025-02-13 13:15] LABS: Hematocrit 42.1 % (37.0-47.0); Hemoglobin 13.9 g/dl (12.0-16.0); Imm Gran Abs Auto 0.01 X10*3/uL (0.00-0.03); Imm Gran Pct Auto 0.2 % (0.0-0.4); Lymphocytes Absolute Auto 1.6 X10*3/uL (1.2-4.9); Mean Corpuscular HGB Conc 33.0 g/dl (31.0-35.0); Mean Corpuscular Hemoglobin 31.7 pg (27.0-33.0); Mean Corpuscular Volume 95.9 fL (80.0-98.0); NRBC Abs Auto 0.000 X10*3/uL (0.0-0.012); NRBC Pct Auto 0.0 /100WBC (0.0-0.2); Platelet Count 194 X10*3/uL (160-400); Red Blood Count 4.39 X10*6/uL (4.20-5.50); White Blood Count 6.5 X10*3/uL (4.8-10.8)
[2025-02-13 13:39] LABS: Alanine Aminotransferase 15 U/L (0-31); Albumin Level 4.8 g/dL (3.5-5.0); Alkaline Phosphatase 90 U/L (39-117); Anion Gap 13 (12-20); Aspartate Amino Transferase 26 U/L (5-31); Blood Urea Nitrogen 14 mg/dL (9-16); Calcium 9.7 mg/dL (8.4-10.2); Carbon Dioxide 27 mmol/L (22-29); Chloride 106 mmol/L (96-108); Estimated Glomerular Filt Rate > 60; Potassium 4.6 mmol/L (3.3-5.1); Sodium 141 mmol/L (135-145); Total Protein 7.3 g/dL (6.5-8.0)
== END 2025-02-13 10:35 | disposition home or self-care (01) ==
LOC: HO.10HDL 10:34
PROVIDERS: Visit Provider Physician Assistant Medical
DX: Z00.00 Encounter for general adult medical examination without abnormal findings (principal); Z55.8 Other problems related to education and literacy
CPT/HCPCS: 36415; 80053; 84443; 85025